=== PATIENT | female | born 1940 | race Caucasian/White ===

== ENCOUNTER → 2016-10-05 | Outpatient (CLI) | payer OTHER ==
--- NOTE | 2016-10-05 11:10 | DX ---
PA and Lateral Chest X-Ray 1004 hours History: Persistent cough for 4 days with development of fever. Findings: Heart size is borderline enlarged. Pulmonary vasculature is normal. There is some atheros clerotic calcification at the aortic arch level. There is peribronchial cuffing seen in the perihilar region and prominence of perihilar interstitial markings. There are no peripheral infiltrates or eff usions. Osseous structures are intact. Impression: Prominence of perihilar interstitial markings and peribronchial cuffing. Findings are non specific but can be seen with bronchitis, reactive airway disease, or viral process.
== END ==
LOC: BMCIMAGING 10:04
PROVIDERS: ATTEND Emergency Medicine
DX: R05 Cough (principal); R50.9 Fever, unspecified; R91.8 Other nonspecific abnormal finding of lung field

== ENCOUNTER → 2016-10-18 | Outpatient (CLI) | payer OTHER ==
--- NOTE | 2016-10-18 09:14 | MA ---
Screening Digital Mammogram Clinical Indications: Routine screening. Daughter with breast cancer at age 56. Technique: Standard cephalocaudal and mediolateral oblique projections are obtained. An additional cc view is performed of the right breast. This examination is processed by the [employer] computer aided d etection system. Comparison: August 2015, August 2014, July 2013 and June 2012 Breast density: B; There are scattered fibroglandular densities. Findings: CAD was reviewed. No suspicious findings are identified. Impression: Negative mammogram. BI-RADS 1. Recommendation: Routine screening is recommended in one year. [facility] will send a result letter to the patient. Negative mammography should not preclude additional workup of a clinically suspicious finding. The patient's information is entered into a reminder system with a target due date for her next mamm ogram.
== END ==
LOC: BMCIMAGING 08:25
DX: Z12.31 Encounter for screening mammogram for malignant neoplasm of breast (principal); Z80.3 Family history of malignant neoplasm of breast
CPT/HCPCS: G0202

== ENCOUNTER → 2016-10-28 | Outpatient (CLI) | payer OTHER | LOC: BMCIMAGING 11:47 | PROVIDERS: ATTEND Internal Medicine | DX: R09.02 Hypoxemia (principal); R91.8 Other nonspecific abnormal finding of lung field ==

== ENCOUNTER → 2016-10-30 | Outpatient (CLI) | payer OTHER | LOC: FIMAGING 13:10 | PROVIDERS: ATTEND Podiatrist Foot & Ankle Surgery | DX: M25.571 Pain in right ankle and joints of right foot (principal); M76.71 Peroneal tendinitis, right leg; M65.9 Synovitis and tenosynovitis, unspecified; S93.491D Sprain of other ligament of right ankle, subsequent encounter; M76.61 Achilles tendinitis, right leg; M72.2 Plantar fascial fibromatosis; M71.571 Other bursitis, not elsewhere classified, right ankle and foot ==

== ENCOUNTER 2016-12-01 11:10 | Emergency (ER) | payer OTHER ==
[2016-12-01] MEDS ORDERED: IPRATROPIUM/ALBUTEROL 3 ML DEYVIAL IH ONE (11:41)
--- NOTE | 2016-12-01 11:46 | EDPHY ---
H & P Stated Complaint: Low O2 at urgent care. recent cough. Time Seen by Provider: 12/01/16 11:34 HPI/ROS: CHIEF COMPLAINT: Cough URI symptoms, low pulse ox HISTORY OF PRESENT ILLNESS: 76-year-old female history of asthma, seen at urgent care [facility] for evaluation of 3 days of productive cough , referred to the emergency department for pulse oxygenation in the low 80s. Denies: Fever, chills, sore throat, chest pain, back pain, syncope or near syncope, abdominal pain PRIMARY CARE PROVIDER: Dr. Bryanna Vergara REVIEW OF SYSTEMS: A ten point review of systems was performed and is negative with the exception of the items mentioned in the HPI PAST MEDICAL & SURGICAL HISTORY: Colonoscopy 4 days ago. Diabetes. Fibromyalgia. Rheumatoid arthritis. Hysterectomy. SOCIAL HISTORY:nonsmoker, never smoked . No alcohol. PHYSICAL EXAM (Prior to examination, patient consented to physical exam, hands were washed and my usual and customary physical exam procedures followed) 1) GENERAL: Well-developed, well-nourished, alert and oriented. Appears nontoxic, smiling, shakes my hand 2) HEAD: Normocephalic, atraumatic 3) HEENT: Pupils equal, round, reactive to light bilaterally. Sclera anicteric. Nasopharynx, oropharynx, clear, no lesions. No tonsillar enlargement or tonsillar exudate. Uvula midline. Ears bilaterally with normal tympanic membranes. 4) NECK: Full range of motion, no meningeal signs. 5) LUNGS: Pulse oxygenation 85% on room air. bilateral end-expiratory wheeze. No retractions or accessory muscle use. 6) HEART: Regular rate and rhythm, no murmur, no heave, no gallop. 7) ABDOMEN: No guarding, no rebound, no focal tenderness, negative McBurney's, negative Gonzalez's, negative Rovsing's, negative peritoneal sign, 8) MUSCULOSKELETAL: Moving all extremities, no focal areas of tenderness, no obvious trauma. No peripheral edema or discoloration. 9) BACK: No CVA tenderness, no midline vertebral tenderness, no fluctuance, no step-off, no obvious trauma, no visual or palpable abnormality. 10) SKIN: No rash, no petechiae. DIFFERENTIAL DIAGNOSIS: In no particular include but limited to bronchitis, pulmonary embolus, pneumonia. - Personal History Current Tetanus Diphtheria and Acellular Pertussis (TDAP): Yes Tetanus Vaccine Date: 2011 - Medical/Surgical History Hx Asthma: Yes Hx Chronic Respiratory Disease: Yes Hx Diabetes: Yes Hx Cardiac Disease: Yes Hx Renal Disease: Yes Hx Cirrhosis: No Hx Alcoholism: No Hx HIV/AIDS: No Hx Splenectomy or Spleen Trauma: No Other PMH: hysterectomy, bladder sx, tonsilectomy, asthma, restless leg, hyperlipedemia, EVA, insomnia, osteoarthritis, fibromyalgia, RA, DM, HTN - Social History Smoking Status: Never smoked Constitutional: Initial Vital Signs Temperature (C) 37.4 C 12/01/16 11:11 Heart Rate 115 H 12/01/16 11:11 Respiratory Rate 20 12/01/16 11:11 Blood Pressure 122/78 H 12/01/16 11:11 O2 Sat (%) 93 12/01/16 11:11 O2 Delivery Mode Room Air O2 (L/minute) 2 Allergies/Adverse Reactions: sulfamethoxazole [From Bactrim] Allergy (Unknown, Verified 05/17/10 15:47) Other-Enter Comments trimethoprim [From Bactrim] Allergy (Unknown, Verified 05/17/10 15:47) Other-Enter Comments erythromycin base [Erythromycin Base] Allergy (Verified 05/14/10 12:19) STOMACH CRAMPS Home Medications: Medication Instructions Recorded Amitriptyline HCl 11/09/13 Aspirin 325 mg (OTC) 11/09/13 Colace 11/09/13 Flexeril 11/09/13 Laxative 11/09/13 Mirapex 11/09/13 Pravachol 11/09/13 Qvar 40 (RX) 11/09/13 Zestril 10 mg (RX) 11/09/13 Albuterol [Proventil Inhaler HFA 1 - 2 puffs IH Q4PRN PRN #1 mdi 12/01/16 (*)] Triazolam 12/01/16 predniSONE [Prednisone] 60 mg PO DAILY #9 tablet 12/01/16 Medical Decision Making - Diagnostics Imaging: Chest, PA and Lateral History: Cough, low O2 sat, sepsis protocol Comparison: October 28, 2016 Findings: Chronic patchy left lower lobe density may represent infiltrate or chronic bronchial disease. I suspect there is diffuse underlying chronic interstitial lung disease. There is no new focal infiltrate or consolidation. Heart size is mildly enlarged. The pulmonary vascularity remains normal.. There is no adenopathy or mass lesion. There is no pleural effusion or pneumothorax. A small dense retrosternal nodule is stable and consistent with a calcified granuloma at is stable since October 2009. A result chronic thoracic kyphosis without compression abnormality. I impression: 1. Difficult to exclude a persistent patchy left lower lobe pneumonia. 2. Possible chronic diffuse interstitial lung disease. 3. If clinically indicated, noncontrast chest CT would be confirmatory of a true pneumonia. Dictated By: Dawit Hernandez MD CT Pulmonary Angiogram History: Shortness of breath, elevated d-dimer. Comparison: PA and lateral chest same day. Technique: Axial contrast-enhanced images were obtained through the chest following the uneventful intravenous administration of 90 mL Isovue-370. Creatinine is 1.2. Multiplanar reformations were performed through the pulmonary arteries. Dose reduction techniques were utilized. Findings: This is a good quality study with visualization of the vessels to the subsegmental level. There is no pulmonary embolus. There is diffuse peribronchial thickening with scattered mucous plugging in the lower lobes and mild basilar atelectasis. There is no focal consolidation. There is a noncalcified 5 mm right lower lobe nodule (series 3 image 132). Right upper lobe granuloma is noted. There is mild cardiomegaly. Coronary artery atherosclerosis is present in the LAD. Mitral valvular and aortic annular calcifications are present. Mild aortic atherosclerosis is present. The aorta is normal caliber without dissection. Scattered mildly prominent mediastinal and hilar lymph nodes are likely reactive. Anterior ankylosis from C4-C7 is noted. A small hiatal hernia is present. Impression: 1. No visible pulmonary embolus. 2. Bronchitis/airways disease with scattered mucous plugging and atelectasis without evidence of pneumonia. 3. Nonspecific mildly prominent lymph nodes, most likely reactive. 4. 5-mm right lower lobe nodule. In a nonsmoker with no cancer history, no further follow up is recommended. In a high-risk patient, Fleischner Society guidelines consider a one-year follow-up CT to be optional. 5. Coronary artery atherosclerosis. Findings discussed with Girish Davies PA-C, 12/01/2016 at 1355 hours. Dictated By: Kwadwo Cooper MD Images reviewed by myself ED Course/Re-evaluation: Patient was re-evaluated with serial examinations throughout her emergency department stay. The case was discussed with Dr. Gold Campos in the ER. She was noted to be hypoxemic and tachycardic. Subsequently a CT angiogram was performed which is negative for pulmonary emboli. At 2:00 p.m. she ambulated to the bathroom without assistance maintaining saturations between 95-100% % on room air with no complaints of dyspnea, no chest pain. At rest she is maintaining saturations of 94-95% on room air, once again without complaints of chest pain or dyspnea. She is feeling improvement after DuoNeb treatment. She has been given oral prednisone as well. At this time I do not think that hospitalization is indicated in the presence of normal saturations. I offered hospitalization she declines this. - Data Points Laboratory Results: Laboratory Results 12/01/16 11:45 12/01/16 11:45 12/01/16 12/01/16 12/01/16 11:50 11:45 11:45 WBC RBC Hgb Hct MCV MCH MCHC RDW Plt Count MPV Neut % (Auto) Lymph % (Auto) [place] % (Auto) Eos % (Auto) Baso % (Auto) Nucleat RBC Rel Count Absolute Neuts (auto) Absolute Lymphs (auto) Absolute Monos (auto) Absolute Eos (auto) Absolute Basos (auto) Absolute Nucleated RBC Immature Gran % Immature Gran # PT 13.5 SEC SEC (12.0-15.0) INR 1.04 (0.83-1.16) APTT 28.1 SEC SEC (23.0-38.0) VBG Lactic Acid Sodium 133 mEq/L L mEq/L (134-144) Potassium 5.2 mEq/L mEq/L (3.5-5.2) Chloride 100 mEq/L mEq/L (97-110) Carbon Dioxide 23 mEq/l mEq/l (22-31) Anion Gap 10 mEq/L mEq/L (8-16) BUN 32 mg/dL H mg/dL (7-23) Creatinine 1.2 mg/dL H mg/dL (0.6-1.0) Estimated GFR 44 Glucose 116 mg/dL H mg/dL (70-100) Calcium 9.3 mg/dL mg/dL (8.5-10.4) Total Bilirubin 0.8 mg/dL mg/dL (0.1-1.4) Influenza Typ A,B (DFA) NEGATIVE FOR FLU (NEGATIVE) 12/01/16 12/01/16 11:45 11:45 WBC 12.30 10^3/uL H 10^3/uL (3.80-9.50) RBC 3.68 10^6/uL L 10^6/uL (4.18-5.33) Hgb 12.6 g/dL g/dL (12.6-16.3) Hct 36.8 % L % (38.0-47.0) MCV 100.0 fL H fL (81.5-99.8) MCH 34.2 pg H pg (27.9-34.1) MCHC 34.2 g/dL g/dL (32.4-36.7) RDW 12.6 % % (11.5-15.2) Plt Count 156 10^3/uL 10^3/uL (150-400) MPV 11.1 fL fL (8.7-11.7) Neut % (Auto) 80.4 % H % (39.3-74.2) Lymph % (Auto) 10.0 % L % (15.0-45.0) [place] % (Auto) 8.0 % % (4.5-13.0) Eos % (Auto) 1.2 % % (0.6-7.6) Baso % (Auto) 0.2 % L % (0.3-1.7) Nucleat RBC Rel Count 0.0 % % (0.0-0.2) Absolute Neuts (auto) 9.88 10^3/uL H 10^3/uL (1.70-6.50) Absolute Lymphs (auto) 1.23 10^3/uL 10^3/uL (1.00-3.00) Absolute Monos (auto) 0.99 10^3/uL H 10^3/uL (0.30-0.80) Absolute Eos (auto) 0.15 10^3/uL 10^3/uL (0.03-0.40) Absolute Basos (auto) 0.03 10^3/uL 10^3/uL (0.02-0.10) Absolute Nucleated RBC 0.00 10^3/uL 10^3/uL (0-0.01) Immature Gran % 0.2 % % (0.0-1.1) Immature Gran # 0.02 10^3/uL 10^3/uL (0.00-0.10) PT INR APTT VBG Lactic Acid 0.9 mmol/L mmol/L (0.7-2.1) Sodium Potassium Chloride Carbon Dioxide Anion Gap BUN Creatinine Estimated GFR Glucose Calcium Total Bilirubin Influenza Typ A,B (DFA) Medications Given: Discontinued Medications Albuterol/Ipratropium (Duoneb) 3 ml IH EDNOW ONE Stop: 12/01/16 11:42 Last Admin: 12/01/16 11:52 Dose: 3 ml Sodium Chloride (Ns) 500 mls @ 0 mls/hr IV ONCE ONE PRN Reason: Wide Open Stop: 12/01/16 13:35 Last Admin: 12/01/16 13:48 Dose: 500 mls Departure - Departure Disposition: Home, Routine, Self-Care Clinical Impression: Exacerbation of asthma Condition: Good Instructions: Asthma (ED) Additional Instructions: Call 911 if you developed chest pain, shortness of breath, dizziness, or any other symptoms that concern you. Referrals: Bryanna Cintron MD [Primary Care Provider] - 1 day without fail Prescriptions: Albuterol [Proventil Inhaler HFA (*)] 1 - 2 puffs IH Q4PRN PRN #1 mdi PRN Reason: Cough, Moderate predniSONE [Prednisone] 60 mg PO DAILY #9 tablet
[2016-12-01 12:00] LABS: % IMMATURE GRANULYOCYTES 0.2 % (0.0-1.1); ABSOLUTE IMMATURE GRANULOCYTES 0.02 10^3/uL (0.00-0.10); ADD DIFF? NO; ADD MORPH? NO; ADD SCAN? NO; ATYPICAL LYMPHOCYTE FLAG 10 (0-99); FRAGMENT RBC FLAG 0 (0-99); HEMATOCRIT 36.8 % (38.0-47.0); HEMOGLOBIN 12.6 g/dL (12.6-16.3); LEFT SHIFT FLG 0 (0-99); LIPEMIA HEMOLYSIS FLAG 90 (0-99); MEAN CELL HEMOGLOBIN 34.2 pg (27.9-34.1); MEAN CELL HEMOGLOBIN CONCENTR. 34.2 g/dL (32.4-36.7); MEAN PLATELET VOLUME 11.1 fL (8.7-11.7); PLATELET CLUMPS FLAG 0 (0-99); PLATELET COUNT 156 10^3/uL (150-400); RED BLOOD CELL COUNT 3.68 10^6/uL (4.18-5.33); RED CELL DISTRIBUTION WIDTH 12.6 % (11.5-15.2)
[2016-12-01 12:11] LABS: ANION GAP 10 mEq/L (8-16); BILIRUBIN,TOTAL 0.8 mg/dL (0.1-1.4); CALCIUM 9.3 mg/dL (8.5-10.4); CARBON DIOXIDE 23 mEq/l (22-31); CHLORIDE 100 mEq/L (97-110); CREATININE 1.2 mg/dL (0.6-1.0); GLOMERULAR FILTRATION RATE 44; GLUCOSE 116 mg/dL (70-100); POTASSIUM 5.2 mEq/L (3.5-5.2); SODIUM 133 mEq/L (134-144)
[2016-12-01 12:20] LABS: APTT 28.1 SEC (23.0-38.0); INR 1.04 (0.83-1.16); PROTIME(PATIENT) 13.5 SEC (12.0-15.0)
[2016-12-01] MEDS ORDERED: IOPAMIDOL (ISOVUE 370) 100 ML BTL IV ONE (12:57)
[2016-12-01] MEDS ORDERED: NS 500 ML IV ONE (13:34)
[2016-12-01] MEDS ORDERED: predniSONE 20 MG TAB PO ONE (14:13)
[2016-12-01 15:08] VITALS: BP 124/76; PULSE 99; RESP 16; TEMP 98.4; O2SAT 90
== END 2016-12-01 15:00 | disposition home or self-care (01) ==
DX: J45.901 Unspecified asthma with (acute) exacerbation (principal); E11.9 Type 2 diabetes mellitus without complications; I10 Essential (primary) hypertension; Z79.82 Long term (current) use of aspirin
CPT/HCPCS: 71020; 71275; 96360; 99285; Q9967

== ENCOUNTER 2016-12-03 11:02 | Emergency (ER) | payer OTHER ==
--- NOTE | 2016-12-03 11:08 | EDPHY ---
HPI/HX/ROS/PE/MDM Narrative: CHIEF COMPLAINT: Fall, facial injuries HPI: This patient is a 76 year old woman presenting after mechanical fall, 15 minutes ago. She was carrying groceries and accidentally tripped up the stairs. There was no loss of consciousness. She sustained abrasions to the left side of her face and landed on her left knee. She was ambulatory after the fall and was able to walk to the car. She denies neck or back pain. REVIEW OF SYSTEMS: Aside from elements discussed in the HPI, a comprehensive 10-point review of systems was reviewed and is negative. PMH: Diabetes, fibromyalgia, RA, hysterectomy SOCIAL HISTORY: Granddaughter at bedside. Denies drug abuse. PHYSICAL EXAM: General:Patient is alert, in no acute distress. ENT:Eyes are normal to inspection. ENT inspection normal. Neck: Normal inspection. Full range of motion. Respiratory:No respiratory distress. Breath sounds normal bilaterally. Cardiovascular: Regular rate and rhythm. Strong peripheral pulses. Normal cap refill. Abdomen:The abdomen is nontender to palpation. There are no peritoneal signs. There are normal bowel sounds. Back: Normal to inspection. No tenderness to palpation. Skin: 1cm curve-linear laceration to the left forehead. Abrasion to the left eyebrow and bridge of nose. Ecchymosis to the left knee. Normal color. No rash. Warm and dry. Extremities: Normal appearance. Full range of motion. Left knee is non-tender, full range of motion without pain. Neuro: Oriented x3. Normal motor function. Normal sensory function. ED Course: IMAGING Study: CT of the Head w/o IV contrast Indication: Trauma Results: The results of the study are normal, no acute findings. The study was read by the radiologist, Dr. Richmond. I viewed the images myself on the PACS system. Procedure: Laceration repair. The 1cm laceration on the left forehead was repaired with dermabond. The wound repair was simple. MDM: This patient presents with mechanical fall causing injury to her forehead. Her CTH is negative. I see no signs of other trauma. The patient would like to go home. We discussed strict return precautions. She is not on anticoagulants. General Time Seen by Provider: 12/03/16 11:07 Initial Vital Signs: Initial Vital Signs Temperature (C) 36.4 C 12/03/16 11:14 Heart Rate 108 H 12/03/16 11:14 Respiratory Rate 22 H 12/03/16 11:14 Blood Pressure 122/74 H 12/03/16 11:14 O2 Sat (%) 92 12/03/16 11:14 O2 Delivery Mode Room Air Allergies/Adverse Reactions: sulfamethoxazole [From Bactrim] Allergy (Unknown, Verified 12/03/16 11:10) Other-Enter Comments trimethoprim [From Bactrim] Allergy (Unknown, Verified 12/03/16 11:10) Other-Enter Comments erythromycin base [Erythromycin Base] Allergy (Verified 12/03/16 11:10) STOMACH CRAMPS Home Medications: Medication Instructions Recorded Amitriptyline HCl 11/09/13 Aspirin 325 mg (OTC) 11/09/13 Colace 11/09/13 Flexeril 11/09/13 Laxative 11/09/13 Mirapex 11/09/13 Pravachol 11/09/13 Qvar 40 (RX) 11/09/13 Zestril 10 mg (RX) 11/09/13 Albuterol [Proventil Inhaler HFA 1 - 2 puffs IH Q4PRN PRN #1 mdi 12/01/16 (*)] Triazolam 12/01/16 predniSONE [Prednisone] 60 mg PO DAILY #9 tablet 12/01/16 Departure - Departure Disposition: Home, Routine, Self-Care Clinical Impression: Fall from slip, trip, or stumble Qualifiers: Encounter type: initial encounter Qualified Code(s): W01.0XXA - Fall on same level from slipping, tripping and stumbling without subsequent striking against object, initial encounter Facial abrasion Qualifiers: Encounter type: initial encounter Qualified Code(s): S00.81XA - Abrasion of other part of head, initial encounter Laceration of forehead without complication Qualifiers: Encounter type: initial encounter Qualified Code(s): S01.81XA - Laceration without foreign body of other part of head, initial encounter Condition: Good Instructions: Fall Prevention for Older Adults (ED), Abrasion (ED), Facial Laceration (ED) Additional Instructions: Return to the Emergency Department for fever, redness, discharge from wound, increasing pain or other worsening of condition. Referrals: Bryanna Cintron MD [Primary Care Provider] - As per Instructions Report Scribed for: Dawit Beckman Report Scribed by: Joaquina Goss Date of Report: 12/03/16 Time of Report: 11:08 Physician Review and Approval Statement: Portions of this note were transcribed by an ED scribe. I personally performed the history, physical exam, and medical decision making; and confirm the accuracy of the information in the transcribed note.
[2016-12-03] MEDS ORDERED: SKIN ADHESIVE (DERMABOND) 1 EACH TP ONE (12:01)
[2016-12-03 12:41] VITALS: BP 123/66; PULSE 77; RESP 15; TEMP 97.7; O2SAT 91
== END 2016-12-03 12:41 | disposition home or self-care (01) ==
PROC: 0HQ1XZZ Repair Face Skin, External Approach (ICD-10-PCS; principal; 2016-12-03)
DX: S01.81XA Laceration without foreign body of other part of head, initial encounter (principal); E11.9 Type 2 diabetes mellitus without complications; Z79.82 Long term (current) use of aspirin; W01.0XXA Fall on same level from slipping, tripping and stumbling without subsequent striking against object, initial encounter; Y93.89 Activity, other specified

== ENCOUNTER → 2016-12-12 | Outpatient (CLI) | payer OTHER | LOC: BMCIMAGING 14:43 | PROVIDERS: ATTEND Internal Medicine | DX: J18.9 Pneumonia, unspecified organism (principal); N28.9 Disorder of kidney and ureter, unspecified ==

== ENCOUNTER → 2016-12-30 | Outpatient (CLI) | payer OTHER | LOC: BMCIMAGING 08:44 | PROVIDERS: ATTEND Internal Medicine | DX: J18.1 Lobar pneumonia, unspecified organism (principal) ==

== ENCOUNTER 2017-01-06 18:51 | Inpatient (IN) | payer OTHER ==
--- NOTE | 2017-01-06 19:17 | EDPHY ---
HPI/HX/ROS/PE/MDM Narrative: CHIEF COMPLAINT: Fever, ongoing cough. HISTORY OF PRESENT ILLNESS: The patient is a 76-year-old female presenting with fever and ongoing cough. The patient was started on 3 days of Levaquin in October for bronchitis. Her symptoms did not improve. She went back to her physician and was started on Cipro and still did not improve. She took another antibiotic which she is unable to recall, and lastly took Azithromycin. The patient continues to have fever and cough. Fever today reached 102. Her cough is productive with yellow/greens sputum. Patient had diarrhea last night. She has felt fatigued and unwell all day. She denies chest pain or shortness of breath. No urinary complaints. Patient wears oxygen at night. The patient did not receive an influenza vaccination. REVIEW OF SYSTEMS: Aside from elements discussed in the HPI, a comprehensive 10-point review of systems was reviewed and is negative. PAST MEDICAL HISTORY: Asthma, Fibromyalgia, Osteoarthritis, Hypertension SOCIAL HISTORY: . Nonsmoker. No alcohol. Granddaughter at bedside. VITAL SIGNS: Reviewed by me GENERAL: Well-developed, well-nourished, resting comfortably in no respiratory distress. HEENT: Atraumatic. Eyes: No icterus, no injection. Mouth: moist mucous membranes. No erythema or lesions. Neck: supple with no adenopathy. LUNGS: Clear to auscultation bilaterally, faint wheezes, good air movement. CARDIAC: Regular rate and rhythm, no rubs, murmurs or gallops. ABDOMEN: Obese, nontender. BACK: No CVA tenderness. EXTREMITIES: No trauma. No edema. Range of motion is normal throughout. NEURO: Alert and oriented, grossly nonfocal. SKIN: Warm and dry, no rash. PSYCHIATRIC: Normal mentation, no agitation. Portions of this note were transcribed by a medical billing and coding instructor. I personally performed a history, physical exam, medical decision making, and confirmed accuracy of information the transcribed note. ED Course: The patient presents with fever and cough. The patient underwent multiple rounds of antibiotics for pneumonia. She continues to have a productive cough and fever today of 102. I reviewed her past medical records. She had a CT in November that was negative for pneumonia. Chest x-ray from 12/12 which showed right lower lobe pneumonia and x-ray from 12/30 showed decreasing right lower lobe pneumonia. Initial vitals show patient is febrile and hypoxic. Sepsis screen identified. Plan for lab workup, lactic acid, and urinalysis. Chest x- ray is pending. Patient received 1000mg Tylenol PO for fever as well as albuterol breathing treatment for cough. The patient presents to the ED with pneumonia identified as an acute infection. The patient did have not evidence of end organ dysfunction and did not met criteria for severe sepsis. I viewed the X-ray of the chest myself on the PACS system. X-ray shows persistent right lower lobe infiltrate. Please see the full radiology report in the imaging section. The patient presents to the ED with pneumonia identified as an acute infection. The patient did not meet criteria for severe sepsis. 76-year-old female presenting with persistent fever, cough, and infiltrate on chest x-ray. Patient is tachycardic to 104 as well as hypoxic at 88% on presentation. Chest x-ray demonstrates persistent right lower lobe infiltrate. 8:35 p.m.: I spoke to the hospitalist, the patient will be admitted to Dr. Prater. MDM: Differential diagnosis for the patient's cough was considered including but not limited to viral versus bacterial bronchitis, asthma, COPD, pulmonary emboli, upper respiratory infection, lower respiratory infection, and bronchospasm. - Data Points Imaging Results: Imaging Impressions Chest X-Ray 01/06/17 19:23 Impression: Bilateral pneumonia appears slightly improved from December 30, 2016. Laboratory Results: Laboratory Results 01/06/17 19:30 01/06/17 19:30 01/06/17 01/06/17 01/06/17 19:30 19:30 19:30 WBC 13.75 10^3/uL H 10^3/uL (3.80-9.50) RBC 3.97 10^6/uL L 10^6/uL (4.18-5.33) Hgb 13.3 g/dL g/dL (12.6-16.3) Hct 39.6 % % (38.0-47.0) MCV 99.7 fL fL (81.5-99.8) MCH 33.5 pg pg (27.9-34.1) MCHC 33.6 g/dL g/dL (32.4-36.7) RDW 13.9 % % (11.5-15.2) Plt Count 190 10^3/uL 10^3/uL (150-400) MPV 10.3 fL fL (8.7-11.7) Neut % (Auto) 75.1 % H % (39.3-74.2) Lymph % (Auto) 16.7 % % (15.0-45.0) Haines % (Auto) 6.8 % % (4.5-13.0) Eos % (Auto) 0.7 % % (0.6-7.6) Baso % (Auto) 0.3 % % (0.3-1.7) Nucleat RBC Rel Count 0.0 % % (0.0-0.2) Absolute Neuts (auto) 10.31 10^3/uL H 10^3/uL (1.70-6.50) Absolute Lymphs (auto) 2.30 10^3/uL 10^3/uL (1.00-3.00) Absolute Monos (auto) 0.94 10^3/uL H 10^3/uL (0.30-0.80) Absolute Eos (auto) 0.10 10^3/uL 10^3/uL (0.03-0.40) Absolute Basos (auto) 0.04 10^3/uL 10^3/uL (0.02-0.10) Absolute Nucleated RBC 0.00 10^3/uL 10^3/uL (0-0.01) Immature Gran % 0.4 % % (0.0-1.1) Immature Gran # 0.06 10^3/uL 10^3/uL (0.00-0.10) PT 13.2 SEC SEC (12.0-15.0) INR 1.01 (0.83-1.16) APTT 26.4 SEC SEC (23.0-38.0) VBG Lactic Acid Sodium 138 mEq/L mEq/L (134-144) Potassium 3.9 mEq/L mEq/L (3.5-5.2) Chloride 106 mEq/L mEq/L (97-110) Carbon Dioxide 23 mEq/l mEq/l (22-31) Anion Gap 9 mEq/L mEq/L (8-16) BUN 26 mg/dL H mg/dL (7-23) Creatinine 1.1 mg/dL H mg/dL (0.6-1.0) Estimated GFR 48 Glucose 126 mg/dL H mg/dL (70-100) Calcium 9.5 mg/dL mg/dL (8.5-10.4) Total Bilirubin 0.7 mg/dL mg/dL (0.1-1.4) 01/06/17 19:30 WBC RBC Hgb Hct MCV MCH MCHC RDW Plt Count MPV Neut % (Auto) Lymph % (Auto) Haines % (Auto) Eos % (Auto) Baso % (Auto) Nucleat RBC Rel Count Absolute Neuts (auto) Absolute Lymphs (auto) Absolute Monos (auto) Absolute Eos (auto) Absolute Basos (auto) Absolute Nucleated RBC Immature Gran % Immature Gran # PT INR APTT VBG Lactic Acid 0.8 mmol/L mmol/L (0.7-2.1) Sodium Potassium Chloride Carbon Dioxide Anion Gap BUN Creatinine Estimated GFR Glucose Calcium Total Bilirubin Medications Given: Discontinued Medications Acetaminophen (Tylenol) 1,000 mg PO EDNOW ONE Stop: 01/06/17 19:25 Last Admin: 01/06/17 19:30 Dose: 1,000 mg Albuterol (Proventil Neb) 3 ml IH EDNOW ONE Stop: 01/06/17 19:25 Last Admin: 01/06/17 20:05 Dose: 3 ml Albuterol/Ipratropium (Duoneb) 3 ml IH EDNOW ONE Stop: 01/06/17 19:25 Last Admin: 01/06/17 19:40 Dose: 3 ml Sodium Chloride (Ns) 1,000 mls @ 0 mls/hr IV ONCE ONE PRN Reason: Wide Open Stop: 01/06/17 19:24 Last Admin: 01/06/17 19:40 Dose: 1,000 mls Ceftriaxone Sodium/Dextrose (Rocephin 1 Gm (Premix)) 50 mls @ 100 mls/hr IV EDNOW ONE PRN Reason: Protocol Stop: 01/06/17 20:43 Last Admin: 01/06/17 20:45 Dose: 50 mls General Time Seen by Provider: 01/06/17 19:10 Initial Vital Signs: Initial Vital Signs Temperature (C) 37.2 C 01/06/17 18:58 Heart Rate 104 H 01/06/17 18:58 Respiratory Rate 17 01/06/17 18:58 Blood Pressure 149/90 H 01/06/17 18:58 O2 Sat (%) 88 L 01/06/17 18:58 O2 Delivery Mode Nasal Cannula O2 (L/minute) 2 Allergies/Adverse Reactions: sulfamethoxazole [From Bactrim] Allergy (Unknown, Verified 01/06/17 18:57) Other-Enter Comments trimethoprim [From Bactrim] Allergy (Unknown, Verified 01/06/17 18:57) Other-Enter Comments erythromycin base [Erythromycin Base] Allergy (Verified 01/06/17 18:57) STOMACH CRAMPS Home Medications: Medication Instructions Recorded Acetaminophen/Codeine 300/30Mg 1 each PO Q6 PRN 01/06/17 [Tylenol #3 (*)] Albuterol [Proventil Inhaler HFA 1 puffs IH TID PRN 01/06/17 (*)] Amitriptyline HCl [Elavil 50 mg 100 mg PO HS 01/06/17 (*)] Aspirin [Aspirin 325 mg (*)] 325 mg PO DAILY 01/06/17 Beclomethasone Qvar 40 [Qvar 40 1 puffs IH BID 01/06/17 (*)] Cholecalciferol Vit D3 [Vitamin D3 2,000 units PO DAILY 01/06/17 (*)] Cyanocobalamin [Vitamin B12 (*)] 2,000 mcg PO DAILY 01/06/17 Cyclobenzaprine [Flexeril 10 MG 10 mg PO HS PRN 01/06/17 (*)] Docusate Sodium [Colace 100 MG (*)] 100 mg PO HS PRN 01/06/17 Lisinopril [Zestril 10 mg (*)] 10 mg PO DAILY 01/06/17 [place]-3 Fatty Acids/Fish Oil 4 each PO DAILY 01/06/17 [[place] 3 Fish Oil Softgel] Polyethylene Glycol 3350 [Miralax 17 gm PO HS 01/06/17 17 gm (*)] Pramipexole Di-HCl [Mirapex 0.25 0.25 mg PO HS 01/06/17 mg (*)] Pravastatin Sodium [Pravachol] 40 mg PO HS 01/06/17 Temazepam [Restoril] 30 mg PO HS 01/06/17 metFORMIN HCL [Metformin HCl] 500 mg PO BID 01/06/17 Acetaminophen [Tylenol 325mg (*)] 650 mg PO Q4HRS PRN #0 tab 01/08/17 Phenazopyridine HCl [Pyridium] 200 mg PO TID PRN #0 tab 01/08/17 levOFLOXACIN [levAQUIN (*)] 750 mg PO DAILY #5 tab 01/08/17 Departure - Departure Disposition: [facility] Inpatient Acute Clinical Impression: Hypoxemia Pneumonia Qualifiers: Pneumonia type: due to unspecified organism Laterality: right Lung location: lower lobe of lung Qualified Code(s): J18.1 - Lobar pneumonia, unspecified organism Condition: Fair Report Scribed for: Dionne Fierro Report Scribed by: Minda Smith Date of Report: 01/06/17 Time of Report: 19:26
[2017-01-06] MEDS ORDERED: NS 1,000 ML IV ONE (19:23)
[2017-01-06] MEDS ORDERED: ALBUTEROL 3 ML DEYVIAL IH ONE (19:24)
[2017-01-06] MEDS ORDERED: IPRATROPIUM/ALBUTEROL 3 ML DEYVIAL IH ONE (19:24)
[2017-01-06] MEDS ORDERED: ACETAMINOPHEN 500 MG TAB PO ONE (19:24)
[2017-01-06 19:40] LABS: % IMMATURE GRANULYOCYTES 0.4 % (0.0-1.1); ABSOLUTE IMMATURE GRANULOCYTES 0.06 10^3/uL (0.00-0.10); ADD DIFF? NO; ADD MORPH? NO; ADD SCAN? NO; ATYPICAL LYMPHOCYTE FLAG 0 (0-99); FRAGMENT RBC FLAG 0 (0-99); HEMATOCRIT 39.6 % (38.0-47.0); HEMOGLOBIN 13.3 g/dL (12.6-16.3); LEFT SHIFT FLG 0 (0-99); LIPEMIA HEMOLYSIS FLAG 80 (0-99); MEAN CELL HEMOGLOBIN 33.5 pg (27.9-34.1); MEAN CELL HEMOGLOBIN CONCENTR. 33.6 g/dL (32.4-36.7); MEAN CELL VOLUME 99.7 fL (81.5-99.8); MEAN PLATELET VOLUME 10.3 fL (8.7-11.7); PLATELET CLUMPS FLAG 0 (0-99); PLATELET COUNT 190 10^3/uL (150-400); RED BLOOD CELL COUNT 3.97 10^6/uL (4.18-5.33); RED CELL DISTRIBUTION WIDTH 13.9 % (11.5-15.2)
[2017-01-06 19:49] LABS: APTT 26.4 SEC (23.0-38.0); INR 1.01 (0.83-1.16); PROTIME(PATIENT) 13.2 SEC (12.0-15.0)
[2017-01-06 20:04] LABS: ANION GAP 9 mEq/L (8-16); BILIRUBIN,TOTAL 0.7 mg/dL (0.1-1.4); CALCIUM 9.5 mg/dL (8.5-10.4); CARBON DIOXIDE 23 mEq/l (22-31); CHLORIDE 106 mEq/L (97-110); CREATININE 1.1 mg/dL (0.6-1.0); GLOMERULAR FILTRATION RATE 48; GLUCOSE 126 mg/dL (70-100); POTASSIUM 3.9 mEq/L (3.5-5.2); SODIUM 138 mEq/L (134-144)
[2017-01-06] MEDS ORDERED: oxyCODONE IR 5 MG TAB PO PRN (21:17)
[2017-01-06] MEDS ORDERED: ONDANSETRON 4 MG/2 ML VIAL IVP PRN (21:17)
[2017-01-06] MEDS ORDERED: POLYETHYLENE GLYCOL 3350 17 GM PKT PO PRN (21:17)
[2017-01-06] MEDS ORDERED: ONDANSETRON DISINTEGRATING 4 MG TAB PO PRN (21:17)
[2017-01-06] MEDS ORDERED: BISACODYL 10 MG SUPP PR PRN (21:17)
[2017-01-06] MEDS ORDERED: MAGNESIUM HYDROXIDE 30 ML UDCUP PO PRN (21:17)
[2017-01-06] MEDS ORDERED: ACETAMINOPHEN 325 MG TAB PO PRN (21:17)
[2017-01-06] MEDS ORDERED: ALBUTEROL 3 ML DEYVIAL IH PRN (21:17)
[2017-01-06] MEDS ORDERED: LACTULOSE 20 GM/30 ML UDCUP PO PRN (21:17)
[2017-01-06] MEDS ORDERED: NS 500 ML IV ONE (21:20)
[2017-01-06] MEDS ORDERED: CYCLOBENZAPRINE 10 MG TAB PO PRN (21:51)
[2017-01-06] MEDS ORDERED: DOCUSATE SODIUM 100 MG CAP PO PRN (21:51)
[2017-01-06] MEDS ORDERED: D50W 25 GM/50 ML SYR IVP PRN (22:08)
--- NOTE | 2017-01-06 23:10 | GHP ---
[f rep st] HISTORY AND PHYSICAL DATE OF ADMISSION: 01/06/2017 CHIEF COMPLAINT: Cough, shortness of breath, and fatigue. HISTORY: This is a 76-year-old female with past medical history that includes reactive airways dise ase, EVA and morbid obesity who presents with several months of cough, shortness of breath and gener alized fatigue. The patient notes that she has been seen and treated on 3 separate occasions for pr esumed right lower lobe pneumonia. She has undergone a course of Levaquin, Augmentin and most recen tly a Z-Pradip. She notes that despite these treatments she continues to have ongoing cough and fatigu e as well as intermittent fever and increased sputum production. She notes that she has a hard time coughing things out but that when she does get anything up it is dark green and very thick. She st ates that she has not really had any reprieve from these symptoms since they started in October. O maggie the last several days they do seem to be getting much worse. She denies any chest pain. She de nies any increased swelling of her legs, though she does have some chronic lower extremity edema for which she takes Lasix. She has had some sick contacts including her granddaughter who just got ove r an upper respiratory infection, but nobody has been as sick as she has been. She has never had si milar issues in the past. PAST MEDICAL HISTORY: Includes. 1. Reactive airways disease. 2. Obstructive sleep apnea. 3. Hypertension. 4. Morbid obesity. 5. Fibromyalgia. 6. Restless legs syndrome. 7. Hyperlipidemia. 8. Diabetes. PAST SURGICAL HISTORY: Includes. 1. Appendectomy. 2. Tonsillectomy. 3. Adnexal mass resection with bilateral salpingo-oophorectomy and hysterectomy. 4. Bladder suspension surgery. 5. Bilateral knee arthroscopies. FAMILY HISTORY: Mother had colon cancer and Alzheimer's at the time of . Father with prostate cancer, colon cancer and leukemia and at 97. SOCIAL HISTORY: Patient lives independently. She is a never smoker. She does not drink or use minnie gs. She has a granddaughter who is very involved in her care. REVIEW OF SYSTEMS: 10-point review of systems obtained. Negative except as per HPI. MEDICATIONS: Include: 1. [place]-3 fatty acids. 2. Cyanocobalamin. 3. Vitamin D. 4. Restoril. 5. Tylenol #3. 6. Metformin. 7. Lisinopril. 8. Pravastatin. 9. Mirapex. 10. Beclomethasone Qvar. 11. Flexeril. 12. Aspirin. 13. Amitriptyline. 14. Albuterol. ALLERGIES: Include sulfa and erythromycin. PHYSICAL EXAM: VITAL SIGNS: BP 122/71, heart rate 91, respiratory rate 18, O2 SATs 99% on 2 L. Sh e was 88% on room air. Temperature is 36.7. GENERAL APPEARANCE: This is an obese female . She is awake and alert. She is in no acute distress. EYES: Anicteric. HENT: Oropharynx clear , moist mucous membranes. CARDIOVASCULAR: RRR, no MRG, there is trace bilateral lower extremity ed yokasta. PULMONARY: Right basilar crackles. Otherwise normal work of breathing. ABDOMEN: Obese soft , nontender. Positive bowel sounds. SKIN: Warm dry well perfused. NEURO/PSYCH: Oriented and filipe ropriate, pleasant. CLINICAL DATA: Labs reviewed and significant for white blood cell count of 13.75, hematocrit of 39. 6, platelets of 190. Coags are within normal limits. Lactic acid is 0.8. Chemistry is notable for a creatinine of 1.1, glucose of 126. Chest x-ray personally reviewed and interpreted shows bilateral pneumonia somewhat worse on the righ t which appears similar to last chest x-ray on December 30. ASSESSMENT/PLAN: This is a 76-year-old female, past medical history of reactive airways disease, OS A and obesity, presenting with persistent versus recurrent bilateral pneumonia. 1. Pneumonia. This is either persistent or recurrent despite 3 rounds of antibiotics as an outpati ent. She has been started on ceftriaxone and will add Levaquin as well. She will be admitted and m onitored for improvement given failure to respond to usual outpatient therapy. She does not appear septic and is otherwise hemodynamically stable. Cultures have been sent and are pending. She has n o risk factors for nosocomial organisms. 2. Acute hypoxic respiratory failure in the setting of above and responding well to low-flow oxygen . Did not have suspicion for secondary process really at this time, but could consider further eval uation if she does not respond to typical therapies, especially given the long-lasting nature of her symptoms. 3. Obstructive sleep apnea for which she has previously not been compliant with CPAP. She does hav e some mild lower extremity edema, likely related to same. Will obtain an echocardiogram to evaluat e for component of pulmonary hypertension. 4. Morbid obesity. Suspect a component of obesity/hypoventilation syndrome contributing. Again, e chocardiogram is pending. Otherwise recommend lifestyle modification. 5. Reactive airways disease without significant evidence of acute exacerbation. Will schedule bron chodilators. Will hold off on steroids given that she does not have any significant wheeze. 6. Diabetes. Will hold her metformin and monitor with sliding scale. 7. Chronic kidney disease. Baseline creatinine seems to be at approximately 1.2, and she is essent ially at baseline currently. 8. Chronic medical problems including hypertension, restless legs syndrome, hyperlipidemia, fibromy algia. Will continue her outpatient regimen. DISPOSITION: Inpatient status. I suspect she will need greater than 48 hours stay for evaluation a nd management of above. Patient is new to my care. Old records reviewed and summarized as per HPI and past medical history. Care plan reviewed with ER doctor including plans for admission. Further history obtained from gorge salonililiana's granddaughter present at bedside. /[id number]/MODL
[2017-01-06] MEDS: TEMAZEPAM 15 MG CAP PO SCH (23:11)
[2017-01-07 00:17] LABS: COLOR YELLOW; LEUKOCYTE ESTERASE,URINE 2+ (NEGATIVE); NITRITE,URINE NEGATIVE (NEGATIVE)
[2017-01-07 00:36] LABS: MUCUS TRACE /lpf (NONE-1+); WBC,URINE 50-182 /hpf (0-3)
[2017-01-07] MEDS: ACETYLCYSTEINE 10% 30 ML VIAL IH SCH ×5 (02:15→20:46)
[2017-01-07] MEDS: ACETAMINOPHEN/CODEINE 300/30MG TAB PO PRN ×3 (03:04→21:13)
[2017-01-07] MEDS: PHENAZOPYRIDINE HCL 100 MG TAB PO PRN ×3 (03:05→20:06)
[2017-01-07 04:57] LABS: % IMMATURE GRANULYOCYTES 0.4 % (0.0-1.1); ABSOLUTE IMMATURE GRANULOCYTES 0.04 10^3/uL (0.00-0.10); ADD DIFF? NO; ADD MORPH? NO; ADD SCAN? NO; ATYPICAL LYMPHOCYTE FLAG 0 (0-99); FRAGMENT RBC FLAG 0 (0-99); HEMATOCRIT 35.7 % (38.0-47.0); HEMOGLOBIN 11.6 g/dL (12.6-16.3); LEFT SHIFT FLG 0 (0-99); LIPEMIA HEMOLYSIS FLAG 80 (0-99); MEAN CELL HEMOGLOBIN 33.1 pg (27.9-34.1); MEAN CELL HEMOGLOBIN CONCENTR. 32.5 g/dL (32.4-36.7); MEAN PLATELET VOLUME 10.9 fL (8.7-11.7); PLATELET CLUMPS FLAG 0 (0-99); PLATELET COUNT 159 10^3/uL (150-400)
[2017-01-07 05:08] LABS: ANION GAP 7 mEq/L (8-16); CARBON DIOXIDE 24 mEq/l (22-31); CHLORIDE 108 mEq/L (97-110); CREATININE 0.9 mg/dL (0.6-1.0); GLOMERULAR FILTRATION RATE > 60; GLUCOSE 124 mg/dL (70-100); POTASSIUM 3.8 mEq/L (3.5-5.2); SODIUM 139 mEq/L (134-144)
[2017-01-07] MEDS: IPRATROPIUM/ALBUTEROL 3 ML DEYVIAL IH SCH ×4 (06:22→20:46)
[2017-01-07] MEDS: INSULIN LISPRO 100 UNIT/ML SC SCH ×3 (07:47→17:40)
[2017-01-07] MEDS: LISINOPRIL 10 MG TAB PO SCH (08:23)
[2017-01-07] MEDS: ENOXAPARIN 40 MG/0.4 ML SYR SC SCH (08:23)
[2017-01-07] MEDS: CHOLECALCIFEROL VIT D3 1,000 UNITS TAB PO SCH (08:23)
[2017-01-07] MEDS: SENNOSIDES/DOCUSATE SODIUM TAB PO SCH ×2 (08:23→20:06)
[2017-01-07] MEDS: CYANO/VITAMIN B12 1000 MCG TAB PO SCH (08:23)
[2017-01-07] MEDS: OMEGA-3 FATTY ACIDS 1,000 MG CAP PO SCH (08:24)
[2017-01-07] MEDS: ASPIRIN 325 MG TAB PO SCH (08:24)
[2017-01-07] MEDS ORDERED: cefTRIAXone 1 GM in D5W 50 ML IV SCH (09:00)
[2017-01-07] MEDS: BECLOMETHASONE QVAR 40 MDI IH SCH ×2 (10:09→20:53)
--- NOTE | 2017-01-07 12:38 | HOSPPROG ---
Hospitalist Progress Note Assessment/Plan: Patient is a 76y/o female who presented to the ER with cough, shortness of breath and fatigue. Today is my first encounter with the patient/ chart reviewed. *Pneumonia bilateral lobe on Ceftriaxone and Levaquin blood cx pending afebrile *acute hypoxemic respiratory failure on room air CTA in November 2016/no PE *EVA patient shared w RN she thought she had an echo 2 weeks ago will f/u (evaluate for Pulmonary hypertension) awaiting for reports from this echo, if not done, will have one done here *UTI has increase frequency and urgency also, drinking lots of water *reactive airway disease *Morbid Obesity possibly impacting the above could have underlying hypoventilation syndrome *Diabetes metformin on hold/ sliding scale *hx of PMR patient felt well while on oral steroids/ not on this *CKD stable *HTN bp slightly elevated *HLD *DVT prophylaxis: LMWH Subjective: adali is feeling better today/ concerned she has some ankle swelling Objective: Vital Signs Temp Pulse Resp BP Pulse Ox 36.7 C 89 16 157/86 H 93 01/07/17 11:23 01/07/17 11:23 01/07/17 11:23 01/07/17 11:23 01/07/17 11:23 Laboratory Results 01/07/17 04:23 01/07/17 04:23 01/06/17 01/07/17 01/08/17 05:59 05:59 05:59 Intake Total 2075 1600 Output Total 700 1150 Balance 1375 450 PT 13.2 SEC (12.0-15.0) 01/06/17 19:30 INR 1.01 (0.83-1.16) 01/06/17 19:30 - Physical Exam Constitutional: no apparent distress, appears nourished, not in pain Eyes: PERRL Ears, Nose, Mouth, Throat: hearing normal Cardiovascular: regular rate and rhythym, edema (trace) Respiratory: no respiratory distress, clear to auscultation Skin: warm Musculoskeletal: no muscle tenderness Neurologic: AAOx3 Psychiatric: interacting appropriately, not anxious ICD10 Worksheet Patient Problems: Problems Problem Status Onset Hypoxemia Acute Pneumonia Acute
[2017-01-07] MEDS: CLINDAMYCIN 1% TP PRN (15:58)
--- NOTE | 2017-01-07 16:43 | ECHO ---
[id number] + + [address] : : [place] [address] : : [phone] + + Adult Echocardiographic Report + --+ :Name: JEANNA CARPENTER JStudy Date: 01/07/2017 03:01 PM : : Hospital Admission Number: [id number] : :: 1940 Gender: Female Height: 63 in : :Age: 76 yrs Race: WH Weight: 180 lb : :Reason For Study: Eval LV Fx : : BSA: 1.8 meter s2: :History: Hypoxia, Pneumonia : + --+ MMode/2D Measurements \T\ Calculations IVSd: 1.0 cm LVIDd: 4.1 cm FS: 34.5 % Ao root diam: 2.9 cm LVPWd: 1.0 cm LVIDs: 2.7 cm EDV(Teich): 76.1 ml ACS: 1.7 cm ESV(Teich): 27.3 ml EF(Teich): 64.1 % Normal Measurement Values: + + :LVIDd (3.5-5.7cm) IVSd (0.6-1.1cm) LVPWd (0.6-1.1cm) Aortic Root (2.0-3.7cm)Left Atrium (1.5-4.0cm): :LV Vol(d) (76-115ml) LV Vol(s) (29-48ml) Ejec Fraction (50-65%)PV Jayden (0.6- 1.2m/s) TV Jayden (0.4-1.0m/s) : :MV E Jayden (0.8-1.0m/s)MV A Jayden (0.3-1.0m/s)LVOT Jayden (0.7-1.2m/s) Asc Ao Jayden ( 0.9-1.8m/s) : + + Doppler Measurements \T\ Calculations MV E max jayden: MV V2 mean: MV P1/2t max jayden: Ao V2 max: 103.7 cm/sec 96.1 cm/sec 127.6 cm/sec 171.0 cm/sec MV A max jayden: MV mean PG: MV P1/2t: 53.3 msec Ao max P.4 cm/sec 4.2 mmHg MVA(P1/2t): 4.1 cm2 11.7 mmHg MV E/A: 0.76 MV V2 VTI: MV dec slope: MV dec time: 45.1 cm 0.21 sec 701.6 cm/sec2 LV V1 max: PA V2 max: TR max jayden: 103.7 cm/sec 88.2 cm/sec 297.3 cm/sec LV V1 max PG: PA max PG: TR max P.3 mmHg 4.3 mmHg 3.1 mmHg RAP systole: 5.0 mmHg RVSP(TR): 40.3 mmHg Left Ventricle The left ventricle is normal in size. There is normal left ventricular wall thickness. The left ventricular ejection fraction is normal. There is Doppler evidence for diastolic dysfunction. Ejection Fraction = 65%. The left ventricular wall motion is normal. Right Ventricle The right ventricle is normal in size and function. Atria The left atrial size is normal. Right atrial size is normal. Mitral Valve The anterior mitral valve leaflet appears thickened and restricted. There is no mitral valve stenosis. The mitral valve mean pressure gradient is 4 mmHg. There is trace to mild mitral regurgitation. Tricuspid Valve Normal tricuspid valve. There is mild tricuspid regurgitation. Right ventricular systolic pressure is 40mmHg. There is Doppler evidence for mild pulmonary hypertension. Aortic Valve The aortic valve opens well. There is no aortic stenosis. There is no aortic insufficiency. Pulmonic Valve The pulmonic valve is normal in structure and function. There is no pulmonic valvular regurgitation. Great Vessels The aortic root is normal size. Pericardium/Pleural There is no pericardial effusion. Conclusion A complete two-dimensional transthoracic echocardiogram was performed (2D, M-mode, Doppler and color flow Doppler). LVEF is normal at 65%. Diastolic dysfunction. The anterior mitral valve leaflet appears thickened and restricted. Trace to mild mitral regurgitation, Mild tricuspid regurgitation. There is Doppler evidence for mild pulmonary hypertension with RVSP of 40mm Hg Final Reading Physician: Kristen Vargas signed on 01/07/2017 04:41 PM Ordering Physician: Maryann Prater Performed By: Moshe Medina, [facility]
[2017-01-07] MEDS ORDERED: PRAMIPEXOLE 0.25 MG TAB PO SCH (21:00)
[2017-01-07] MEDS ORDERED: AMITRIPTYLINE HCL 50 MG TAB PO SCH (21:00)
[2017-01-07] MEDS ORDERED: TEMAZEPAM 15 MG CAP PO SCH (21:00)
[2017-01-07] MEDS ORDERED: PRAVASTATIN SODIUM 40 MG TAB PO SCH (21:00)
[2017-01-07] MEDS ORDERED: POLYETHYLENE GLYCOL 3350 17 GM PKT PO SCH (21:00)
[2017-01-07] MEDS: TEMAZEPAM 15 MG CAP PO SCH (21:47)
[2017-01-08] MEDS: IPRATROPIUM/ALBUTEROL 3 ML DEYVIAL IH SCH ×2 (05:52→10:35)
[2017-01-08 07:40] VITALS: BP 97/75; TEMP 98.4
[2017-01-08] MEDS: ENOXAPARIN 40 MG/0.4 ML SYR SC SCH (07:44)
[2017-01-08] MEDS: ASPIRIN 325 MG TAB PO SCH (07:44)
[2017-01-08] MEDS: OMEGA-3 FATTY ACIDS 1,000 MG CAP PO SCH (07:44)
[2017-01-08] MEDS: CLINDAMYCIN 1% TP PRN (07:44)
[2017-01-08] MEDS: SENNOSIDES/DOCUSATE SODIUM TAB PO SCH (07:45)
[2017-01-08] MEDS: ACETYLCYSTEINE 10% 30 ML VIAL IH SCH (07:47)
[2017-01-08] MEDS: ACETAMINOPHEN/CODEINE 300/30MG TAB PO PRN (07:48)
[2017-01-08] MEDS: LISINOPRIL 10 MG TAB PO SCH (07:48)
[2017-01-08] MEDS: PHENAZOPYRIDINE HCL 100 MG TAB PO PRN (07:48)
[2017-01-08] MEDS: CHOLECALCIFEROL VIT D3 1,000 UNITS TAB PO SCH (07:48)
[2017-01-08] MEDS: CYANO/VITAMIN B12 1000 MCG TAB PO SCH (07:49)
[2017-01-08] MEDS: INSULIN LISPRO 100 UNIT/ML SC SCH ×2 (07:50→13:26)
[2017-01-08] MEDS ORDERED: POTASSIUM CL 10 MEQ TAB PO ONE (08:00)
[2017-01-08] MEDS ORDERED: FUROSEMIDE 20 MG TAB PO ONE (08:00)
[2017-01-08] MEDS: BECLOMETHASONE QVAR 40 MDI IH SCH (10:35)
--- NOTE | 2017-01-08 10:43 | HOSPPROG ---
Hospitalist Progress Note Assessment/Plan: Patient is a 76y/o female who presented to the ER with cough, shortness of breath and fatigue. *Pneumonia bilateral lobe/ xray shows improvement from one in December on Ceftriaxone and Levaquin blood cx no growth afebrile on room air *acute hypoxemic respiratory failure on room air CTA in November 2016/no PE *EVA she wears o2 at night, but doesn't tolerate CPAP echo show mild pulm htn, Diastolic dysfunction *UTI/suspect she has chronic cystitis has increase frequency and urgency *reactive airway disease *Morbid Obesity possibly impacting the above could have underlying hypoventilation syndrome *Diabetes metformin on hold/ sliding scale *hx of PMR patient felt well while on oral steroids/ not on this *CKD stable *HTN bp low, but took a dose of lasix this morning *HLD *DVT prophylaxis: LMWH Subjective: Flaca is feeling well, no complaints. Objective: Vital Signs Temp Pulse Resp BP Pulse Ox 36.9 C 94 15 97/75 L 90 L 01/08/17 07:38 01/08/17 07:38 01/08/17 07:38 01/08/17 07:38 01/08/17 07:38 Laboratory Results 01/07/17 04:23 01/07/17 04:23 01/07/17 01/08/17 01/09/17 05:59 05:59 05:59 Intake Total 2075 4270 50 Output Total 700 6200 200 Balance 1375 -1930 -150 PT 13.2 SEC (12.0-15.0) 01/06/17 19:30 INR 1.01 (0.83-1.16) 01/06/17 19:30 - Physical Exam Constitutional: no apparent distress, obese Eyes: PERRL Ears, Nose, Mouth, Throat: hearing normal Cardiovascular: regular rate and rhythym Respiratory: no respiratory distress, no rales or rhonchi, clear to auscultation Gastrointestinal: normoactive bowel sounds Skin: warm Musculoskeletal: no muscle tenderness Neurologic: AAOx3 Psychiatric: interacting appropriately, not anxious ICD10 Worksheet Patient Problems: Problems Problem Status Onset Hypoxemia Acute Pneumonia Acute
[2017-01-08 10:45] VITALS: PULSE 88; RESP 14; O2SAT 94
--- NOTE | 2017-01-08 12:45 | GDS ---
[f rep st] DISCHARGE SUMMARY DISCHARGE DIAGNOSES: 1. Bilateral lobe pneumonia. 2. Acute hypoxemic respiratory failure. 3. Obstructive sleep apnea. 4. Pyuria, suspect chronic cystitis. 5. Reactive airway disease. 6. Morbid obesity. 7. Diabetes. 8. History of PMR. 9. Chronic kidney disease. 10. Hypertension. 11. Hyperlipidemia. BRIEF HISTORY: The patient is a 76-year-old female with a past medical history that includes reactive airway disease, obstructive sleep apnea, morbid obesity. She presented to the emergency room with several months of cough, shortness of breath and generalized fatigue. She has been treated on 3 separate occasions for right lower lobe pneumonia. She has been treated with Levaquin, Augmentin, and most recently a Z-Pradip. She says she continues to have ongoing cough and fatigue, as well as intermittent fever, increased sputum production. On admission, she had a chest x-ray performed that shows bilateral pneumonia, which appears similar to her last x-ray on December 30, with possible improvement. She was treated with IV antibiotics. She has been on room air. Today, she is feeling markedly better. She has a followup appointment with a tank charger. I suspect that she may have some underlying chronic bronchitis. HOSPITAL COURSE: 1. Bilateral lobe pneumonia, markedly better. Blood culture showed no growth. She is on room air. She has been afebrile. Leukocytosis has improved. 2. Acute hypoxemic respiratory failure. She had a CTA in November of 2016, which showed no PE. 3. Obstructive sleep apnea. She wears oxygen at night, but does not tolerate CPAP. Her echocardiogram shows mild pulmonary hypertension, as well as diastolic dysfunction. 4. Pyuria, suspect she has chronic cystitis. She said that this has been going on for years. She has seen a urologist in the past. Recommended that she see this doctor again. 5. Reactive airway disease. Stable. 6. Morbid obesity. This is likely impacting the above, she also could have some underlying hypoventilation syndrome. 7. Diabetes, resumed metformin. 8. History of polymyalgia rheumatica. She had been on steroids in the past that really helped her symptoms. Currently, she is not on them. She sees Dr. Benoit in the outpatient setting. 9. Chronic kidney disease, stable. 10. Hypertension. Blood pressure is a little bit low this morning. She did take a dose of Lasix, per her request, for some bilateral ankle swelling. 11. Hyperlipidemia. I resumed her statin therapy. PENDING LABS AND TESTS: None. CONDITION AT DISCHARGE: Stable. Blood pressure is 97/75, heart rate is 94, respiratory rate 15, O2 sats on room air 94%, temperature is 36.9 Celsius. MEDICATIONS AT DISCHARGE: Please see the EMR. DISCHARGE INSTRUCTIONS: 1. To take the Levaquin as instructed. To be aware this can cause tendinopathy. 2. I suspect she has chronic cystitis. She needs to follow up with her urologist. 3. She has some pulmonary hypertension, as well as diastolic dysfunction. She already has an appointment with Dr. Suazo, the tank charger. 4. To get a repeat chest x-ray in 6 weeks to make sure her pneumonia has completely resolved. Greater than 30 minutes discharging and coordinating care. /[id number]/MODL MTDD
== END 2017-01-08 16:29 | disposition home or self-care (01) | DRG 193 ==
LOC: OBSVTOIN 21:19 → F3N 22:23
PROVIDERS: ADMIT Internal Medicine; ATTEND Internal Medicine
DX: J18.9 Pneumonia, unspecified organism (principal); J96.01 Acute respiratory failure with hypoxia; N39.0 Urinary tract infection, site not specified; J45.909 Unspecified asthma, uncomplicated; E11.9 Type 2 diabetes mellitus without complications; I12.9 Hypertensive chronic kidney disease with stage 1 through stage 4 chronic kidney disease, or unspecified chronic kidney disease; N18.9 Chronic kidney disease, unspecified; E78.5 Hyperlipidemia, unspecified; E66.01 Morbid (severe) obesity due to excess calories; Z68.31 Body mass index [BMI] 31.0-31.9, adult; Z99.81 Dependence on supplemental oxygen
CPT/HCPCS: 96365; 97161-GP; 97165-GO; G8978-GP-CI; G8979-GP-CI; G8980-GP-CI; G8987-GO-CI; G8988-GO-CI; G8989-GO-CI; J0696; J1650; J1956

== ENCOUNTER → 2017-03-02 | Outpatient (CLI) | payer OTHER | LOC: BMCIMAGING 08:44 | PROVIDERS: ATTEND Internal Medicine | DX: J18.9 Pneumonia, unspecified organism (principal) ==

== ENCOUNTER → 2017-05-10 | Outpatient (CLI) | payer OTHER | LOC: BMCIMAGING 10:12 | PROVIDERS: ATTEND Internal Medicine | DX: J40 Bronchitis, not specified as acute or chronic (principal) ==

== ENCOUNTER → 2017-06-19 | Outpatient (CLI) | payer OTHER | LOC: FIMAGING 10:41 | PROVIDERS: ATTEND Internal Medicine Critical Care Medicine | DX: R91.1 Solitary pulmonary nodule (principal); I25.10 Atherosclerotic heart disease of native coronary artery without angina pectoris ==

== ENCOUNTER 2017-09-15 11:13 | Inpatient (IN) | payer OTHER ==
[2017-09-15] MEDS ORDERED: NS 1,000 ML IV ONE ×2 (12:06→13:15)
[2017-09-15 12:17] LABS: PLATELET COUNT 167 10^3/uL (150-400)
--- NOTE | 2017-09-15 12:36 | EDPHY ---
H & P Stated Complaint: Lower back pain dysuria x 2 days Time Seen by Provider: 09/15/17 11:52 - Personal History Current Tetanus/Diphtheria Vaccine: Unsure Current Tetanus Diphtheria and Acellular Pertussis (TDAP): Unsure Tetanus Vaccine Date: 2011 - Medical/Surgical History Hx Asthma: Yes Hx Chronic Respiratory Disease: Yes Hx Diabetes: Yes Hx Cardiac Disease: Yes Hx Renal Disease: Yes Hx Cirrhosis: No Hx Alcoholism: No Hx HIV/AIDS: No Hx Splenectomy or Spleen Trauma: No Other PMH: hysterectomy, bladder sx, tonsilectomy, asthma, restless leg, hyperlipedemia, EVA, insomnia, osteoarthritis, fibromyalgia, DM, HTN - Social History Smoking Status: Never smoked Constitutional: Initial Vital Signs Temperature (C) 36.9 C 09/15/17 11:26 Heart Rate 115 H 09/15/17 11:26 Respiratory Rate 20 09/15/17 11:26 Blood Pressure 90/58 L 09/15/17 11:26 O2 Sat (%) 94 09/15/17 11:26 O2 Delivery Mode Room Air Allergies/Adverse Reactions: sulfamethoxazole [From Bactrim] Allergy (Unknown, Verified 01/06/17 18:57) Other-Enter Comments trimethoprim [From Bactrim] Allergy (Unknown, Verified 01/06/17 18:57) Other-Enter Comments erythromycin base [Erythromycin Base] Allergy (Verified 01/06/17 18:57) STOMACH CRAMPS Home Medications: Medication Instructions Recorded Acetaminophen/Codeine 300/30Mg 1 each PO Q6 PRN 01/06/17 [Tylenol #3 (*)] Albuterol [Proventil Inhaler HFA 1 puffs IH TID PRN 01/06/17 (*)] Amitriptyline HCl [Elavil 50 mg 100 mg PO HS 01/06/17 (*)] Aspirin [Aspirin 325 mg (*)] 325 mg PO DAILY 01/06/17 Beclomethasone Qvar 40 [Qvar 40 1 puffs IH BID 01/06/17 (*)] Cholecalciferol Vit D3 [Vitamin D3 2,000 units PO DAILY 01/06/17 (*)] Cyanocobalamin [Vitamin B12 (*)] 2,000 mcg PO DAILY 01/06/17 Cyclobenzaprine [Flexeril 10 MG 10 mg PO HS PRN 01/06/17 (*)] Docusate Sodium [Colace 100 MG (*)] 100 mg PO HS PRN 01/06/17 Lisinopril [Zestril 10 mg (*)] 10 mg PO DAILY 01/06/17 [place]-3 Fatty Acids/Fish Oil 4 each PO DAILY 01/06/17 [[place] 3 Fish Oil Softgel] Polyethylene Glycol 3350 [Miralax 17 gm PO HS 01/06/17 17 gm (*)] Pramipexole Di-HCl [Mirapex 0.25 0.25 mg PO HS 01/06/17 mg (*)] Pravastatin Sodium [Pravachol] 40 mg PO HS 01/06/17 Temazepam [Restoril] 30 mg PO HS 01/06/17 metFORMIN HCL [Metformin HCl] 500 mg PO BID 01/06/17 Acetaminophen [Tylenol 325mg (*)] 650 mg PO Q4HRS PRN #0 tab 01/08/17 Phenazopyridine HCl [Pyridium] 200 mg PO TID PRN #0 tab 01/08/17 levOFLOXACIN [levAQUIN (*)] 750 mg PO DAILY #5 tab 01/08/17 Medical Decision Making - Diagnostics Imaging: Discussed imaging studies w/ manager call center Radiologist, I viewed and interpreted images myself ED Course/Re-evaluation: CHIEF COMPLAINT: Abdominal pain. HISTORY OF PRESENT ILLNESS: The patient is a 77 y/o female arriving with her friend complaining of malaise, abdominal pain, and dysuria onset last night. Her medical history including recurrent UTIs, diabetes, and hypertension. She has been constipated for 3 days without a bowel movement until her daughter administered an enema last night. She had a successful bowel movement, but then developed brownish-orange diarrhea. She notes she has been using Pyridium for concurrent dysuria symptoms. She has had difficulty urinating today and is requesting a Madrigal while here as well. She developed lower abdominal pain this morning that is worst in her LLQ and extends to her back. She has a history of a hysterectomy and bladder surgery. REVIEW OF SYSTEMS: A 10 point review of systems was performed and is negative with the exception of the elements mentioned in the history of present illness. PHYSICAL EXAM: HR, BP, O2 Sat, RR. Temp noted General Appearance: Alert, well hydrated, appropriate, and non-toxic appearing. Head: Atraumatic without scalp tenderness or obvious injury Eyes: Pupils equal, round, reactive to light and accommodation, EOMI, no trauma , no injection. Nose: Atraumatic, no rhinorrhea, clear. Throat: Mucus membranes moist. Neck: Supple Respiratory: No retractions, no distress, no wheezes, and no accessory muscle use. Lungs are clear to auscultation bilaterally. Cardiovascular: Regular rate and rhythm, no murmurs, rubs, or gallops. Good capillary refill all extremities. Gastrointestinal: Abdomen is soft, lower quadrant tenderness worst in LLQ, non- distended, no masses, no rebound, no guarding, no peritoneal signs. Musculoskeletal: Normal active ROM of all extremities, atraumatic. Neurological: Alert, appropriate, and interactive. The patient has non-focal cranial nerves, motor, sensory, and cerebellar exam. Skin: No rashes, good turgor, no nodules on palpation. PAST MEDICAL HISTORY: Recurrent UTIs, hyperlipidemia, EVA, insomnia, fibromyalgia, diabetes, hypertension, asthma. PAST SURGICAL HISTORY: Hysterectomy, bladder surgery, tonsillectomy SOCIAL HISTORY: Friend at bedside. Lives in [place] retired. DIAGNOSTICS/PROCEDURES/CRITICAL CARE TIME: Abdominal CT: diffuse colitis DIFFERENTIAL DIAGNOSIS: The differential diagnosis for the patient's abdominal pain included but was not limited to ovarian cyst, pelvic inflammatory disease, ovarian torsion, urinary tract infection, ectopic , cholecystitis, and appendicitis. MEDICAL DECISION MAKING: This is a 77 y/o female who presents with a 3-day history of constipation with urinary retention and abdominal pain onset this morning. Her constipation turned to diarrhea following an enema last night and she also believes she has a UTI due to urinary symptoms. She has lower abdominal tenderness on exam. She is not currently tachycardic. Plan for IV, labs, UA, and abdominal CT. Madrigal ordered at patient's request for urinary retention. Lab was unable to completely process UA due to discoloration. WBCs noted in urine in conjunction with her urinary symptoms indicates a UTI. 1gm IV Ceftriaxone ordered. Creatinine elevated at 2.3, so CT will need to be without contrast. WBC elevated at 25. Lactate normal. Patient does not meet sepsis criteria. Spoke with hospitalist service. Dr. Hollingsworth accepts admission. CT shows diffuse colitis. - Data Points Laboratory Results: Laboratory Results 09/15/17 12:00 09/15/17 12:50 09/15/17 09/15/17 09/15/17 13:10 12:50 12:50 WBC RBC Hgb Hct MCV MCH MCHC RDW Plt Count MPV Neut % (Auto) Lymph % (Auto) [place] % (Auto) Eos % (Auto) Baso % (Auto) Nucleat RBC Rel Count Absolute Neuts (auto) Absolute Lymphs (auto) Absolute Monos (auto) Absolute Eos (auto) Absolute Basos (auto) Absolute Nucleated RBC Immature Gran % Seg Neutrophils % Band Neutrophils % Lymphocytes % Monocytes % Immature Gran # Absolute Seg Neuts Absolute Band Neuts Absolute Lymphocytes Absolute Monocytes RBC/WBC/PLT Morphology Platelet Estimate PT 15.5 SEC H SEC (12.0-15.0) INR 1.21 H (0.83-1.16) APTT 28.0 SEC SEC (23.0-38.0) VBG Lactic Acid Sodium 137 mEq/L mEq/L (135-145) Potassium 4.5 mEq/L mEq/L (3.5-5.2) Chloride 102 mEq/L mEq/L (97-110) Carbon Dioxide 20 mEq/l L mEq/l (22-31) Anion Gap 15 mEq/L mEq/L (8-16) BUN 51 mg/dL H mg/dL (7-23) Creatinine 2.3 mg/dL H mg/dL (0.6-1.0) Estimated GFR 21 Glucose 136 mg/dL H mg/dL (70-100) Calcium 8.5 mg/dL mg/dL (8.5-10.4) Total Bilirubin 0.8 mg/dL mg/dL (0.1-1.4) AST ALT Alkaline Phosphatase Total Protein Albumin Urine Color RED Urine Appearance HAZY Urine pH 5.0 (5.0-7.5) Ur Specific [place] 1.019 (1.002-1.030) Urine Protein TNP Urine Ketones TNP Urine Blood TNP Urine Nitrate TNP Urine Bilirubin TNP Urine Urobilinogen TNP Ur Leukocyte Esterase TNP Urine RBC NONE SEEN /hpf /hpf (0-3) Urine WBC 15-25 /hpf H /hpf (0-3) Ur Epithelial Cells NONE SEEN /lpf /lpf (NONE-1+) Urine Glucose TNP 09/15/17 09/15/17 09/15/17 12:50 12:00 12:00 WBC 25.13 10^3/uL H 10^3/uL (3.80-9.50) RBC 4.32 10^6/uL 10^6/uL (4.18-5.33) Hgb 14.7 g/dL g/dL (12.6-16.3) Hct 41.8 % % (38.0-47.0) MCV 96.8 fL fL (81.5-99.8) MCH 34.0 pg pg (27.9-34.1) MCHC 35.2 g/dL g/dL (32.4-36.7) RDW 13.2 % % (11.5-15.2) Plt Count 167 10^3/uL 10^3/uL (150-400) MPV 11.5 fL fL (8.7-11.7) Neut % (Auto) Not Reported Lymph % (Auto) Not Reported [place] % (Auto) Not Reported Eos % (Auto) Not Reported Baso % (Auto) Not Reported Nucleat RBC Rel Count 0.0 % % (0.0-0.2) Absolute Neuts (auto) Not Reported Absolute Lymphs (auto) Not Reported Absolute Monos (auto) Not Reported Absolute Eos (auto) Not Reported Absolute Basos (auto) Not Reported Absolute Nucleated RBC 0.00 10^3/uL 10^3/uL (0-0.01) Immature Gran % Not Reported Seg Neutrophils % 84 % % Band Neutrophils % 5 % % Lymphocytes % 4 % % Monocytes % 7 % % Immature Gran # Not Reported Absolute Seg Neuts 21.11 10^/uL H 10^/uL (1.70-6.50) Absolute Band Neuts 1.26 10^3/uL H 10^3/uL (0.00-0.70) Absolute Lymphocytes 1.01 10^3/uL 10^3/uL (1.00-3.00) Absolute Monocytes 1.76 10^3/uL H 10^3/uL (0.30-0.80) RBC/WBC/PLT Morphology NORMAL (NORMAL) Platelet Estimate ADEQUATE (ADEQ) PT INR APTT VBG Lactic Acid 1.8 mmol/L mmol/L (0.7-2.1) Sodium Pending Potassium Pending Chloride Pending Carbon Dioxide Pending Anion Gap Pending BUN Pending Creatinine Pending Estimated GFR Pending Glucose Pending Calcium Pending Total Bilirubin Pending AST Pending ALT Pending Alkaline Phosphatase Pending Total Protein Pending Albumin Pending Urine Color Urine Appearance Urine pH Ur Specific [place] Urine Protein Urine Ketones Urine Blood Urine Nitrate Urine Bilirubin Urine Urobilinogen Ur Leukocyte Esterase Urine RBC Urine WBC Ur Epithelial Cells Urine Glucose Medications Given: Discontinued Medications Sodium Chloride (Ns) 1,000 mls @ 0 mls/hr IV EDNOW ONE; Wide Open PRN Reason: Protocol Stop: 09/15/17 12:07 Last Admin: 09/15/17 12:09 Dose: 1,000 mls Sodium Chloride (Ns) 1,000 mls @ 0 mls/hr IV ONCE ONE PRN Reason: Wide Open Stop: 09/15/17 13:16 Last Admin: 09/15/17 13:32 Dose: 1,000 mls Ceftriaxone Sodium/Dextrose (Rocephin 1 Gm (Premix)) 50 mls @ 100 mls/hr IV EDNOW ONE PRN Reason: Protocol Stop: 09/15/17 14:47 Last Admin: 09/15/17 14:55 Dose: 50 mls Departure - Departure Disposition: [facility] Inpatient Acute Clinical Impression: Urinary retention, Renal insufficiency, Pyelonephritis, Colitis Diarrhea Qualifiers: Diarrhea type: unspecified type Qualified Code(s): R19.7 - Diarrhea, unspecified Abdominal pain Qualifiers: Abdominal location: lower abdomen, unspecified Qualified Code(s): R10.30 - Lower abdominal pain, unspecified Condition: Fair Report Scribed for: Trent Henson Report Scribed by: Mattie Perez Date of Report: 09/15/17 Time of Report: 14:10
[2017-09-15 13:11] LABS: INR 1.21 (0.83-1.16); PROTIME(PATIENT) 15.5 SEC (12.0-15.0)
[2017-09-15] MEDS ORDERED: ERTAPENEM 1 GM VIAL IVP ONE (14:56)
--- NOTE | 2017-09-15 16:54 | PDGENHP ---
History and Physical - Chief Complaint malaise, dysuria, abd pain, flank pain - History of Present Illness The patient is a 77 y/o female complaining of malaise, abdominal pain, and dysuria onset last night. She has had dysuria and progressive bilateral flank pain x 1 days. She has been taking Pyridium she had cataracts surgery yesterday she has been having constipation for a few days and had an enema yesterday and then developed diarrhea She c/o of diffuse abd pain, but worse on the left side She is hypoxic requiring 3 L but does not feel SOB. She does have a hx of CHF and she does take diuretics at home. She has not taken any diuretics for several days. She does not have any pedal edema. She has been afebrile. She denies cough. She denies SOB. she does have a hx of nocturnal hypoxemia requiring 2 LO2 but none during the day. She also has a hx of EVA, but she does not use a CPAP She was found to have tachycardia, hypotension, and acute renal failure in the E.D. She was started on both Rocephin and Invanz. A CXR was not ordered. She has Leukocytosis Serum Lactate was unremarkable She has been given 2 L of IVF Liriano was placed Lab was unable to completely process UA due to discoloration. She denies cp, sob, n/v. NO further diarrhea. no pedal edema. She denies Fever. She has significant bilateral flank pain. no focal weakness. feels that her mouth is dry. + dysuria and urinary frequency. + abd pain. PAST MEDICAL HISTORY: Recurrent UTIs, hyperlipidemia, EVA, insomnia, fibromyalgia, diabetes, hypertension, asthma. PAST SURGICAL HISTORY: Hysterectomy, bladder surgery, tonsillectomy SOCIAL HISTORY: Friend at bedside. Lives in [place] retired. DATA: Abdominal CT, non contrast: diffuse colitis of Left Hemicolon. No bladder wall thickening, hydronephrosis, hydroureter, nephrolithiasis, ureteral calculi, bladder stones. History Information - Allergies/Home Medication List Allergies/Adverse Reactions: sulfamethoxazole [From Bactrim] Allergy (Unknown, Verified 01/06/17 18:57) Other-Enter Comments trimethoprim [From Bactrim] Allergy (Unknown, Verified 01/06/17 18:57) Other-Enter Comments erythromycin base [Erythromycin Base] Allergy (Verified 01/06/17 18:57) STOMACH CRAMPS Home Medications: Acetaminophen/Codeine 300/30Mg [Tylenol #3 (*)] 1 each PO Q6 PRN 01/06/17 [Last Taken 09/14/17] Albuterol [Proventil Inhaler HFA (*)] 1 puffs IH Q4-6PRN PRN 01/06/17 [Last Taken 01/06/17] Amitriptyline HCl [Elavil 50 mg (*)] 100 mg PO HS 01/06/17 [Last Taken 09/13/17] Aspirin [Aspirin 325 mg (*)] 325 mg PO HS 01/06/17 [Last Taken 09/13/17] Beclomethasone Qvar 40 [Qvar 40 (*)] 2 puffs IH BID PRN 01/06/17 [Last Taken 01/18 09:00] Cyclobenzaprine [Flexeril 10 MG (*)] 10 mg PO HS 01/06/17 [Last Taken 09/13/17] Docusate Sodium [Colace 100 MG (*)] 100 mg PO HS PRN 01/06/17 [Last Taken ] Lisinopril [Zestril 10 mg (*)] 20 mg PO DAILY 01/06/17 [Last Taken 09/13/17] Pramipexole Di-HCl [Mirapex 0.25 mg (*)] 0.25 mg PO HS 01/06/17 [Last Taken 06/21] Pravastatin Sodium [Pravachol] 40 mg PO HS 01/06/17 [Last Taken 09/13/17] Temazepam [Restoril] 30 mg PO HS 01/06/17 [Last Taken 09/14/17] metFORMIN HCL [Metformin HCl] 500 mg PO BIDMEAL 01/06/17 [Last Taken 09/13/17] Bromfenac Sodium [Bromsite] 1 drop RTEYE DAILY 09/15/17 [Last Taken Unknown] Furosemide [Lasix 20 MG (*)] 20 mg PO DAILY PRN 09/15/17 [Last Taken Unknown] Gatifloxacin 0.5% [Zymaxid 0.5%] 1 drop RTEYE Q2 09/15/17 [Last Taken Unknown] Magnesium Oxide [Magnesium Oxide 500 mg] 500 mg PO DAILY 09/15/17 [Last Taken Unknown] [place]-3 Fatty Acids [Fish Oil 1000 mg (*)] 2,000 mg PO BID 09/15/17 [Last Taken 09/13/17] Potassium Cl [Klor-Con] 10 meq PO DAILY PRN 09/15/17 [Last Taken Unknown] prednisoLONE ACET 1% [Pred Forte 1% (*)] 1 drops RTEYE QID 09/15/17 [Last Taken Unknown] I have personally reviewed and updated: medical history, social history - Social History Smoking Status: Never smoked Review of Systems Review of Systems: ROS: 10pt was reviewed & negative except for what was stated in HPI & below Physical Exam Physical Exam: Temp Pulse Resp BP Pulse Ox 37.1 C 97 18 101/5 L 96 09/15/17 15:49 09/15/17 15:49 09/15/17 15:49 09/15/17 15:49 09/15/17 15:49 O2 (L/minute) 3 Constitutional: no apparent distress Eyes: PERRL, EOMI Ears, Nose, Mouth, Throat: dry mucous membranes Cardiovascular: tachycardia, No JVD, No edema Respiratory: no respiratory distress, no rales or rhonchi, clear to auscultation Gastrointestinal: tenderness (generalized ttp, worse LLQ), distension, No guarding, No rebound Skin: warm Musculoskeletal: full muscle strength Neurologic: AAOx3 Psychiatric: interacting appropriately, not anxious, not encephalopathic, thought process linear, encephalopathic Lymph, Heme, Immunologic: No petechiae Lab Data & Imaging Review 09/15/17 12:00 09/15/17 12:50 WBC 25.13 10^3/uL (3.80-9.50) H 09/15/17 12:00 RBC 4.32 10^6/uL (4.18-5.33) 09/15/17 12:00 Hgb 14.7 g/dL (12.6-16.3) 09/15/17 12:00 Hct 41.8 % (38.0-47.0) 09/15/17 12:00 MCV 96.8 fL (81.5-99.8) 09/15/17 12:00 MCH 34.0 pg (27.9-34.1) 09/15/17 12:00 MCHC 35.2 g/dL (32.4-36.7) 09/15/17 12:00 RDW 13.2 % (11.5-15.2) 09/15/17 12:00 Plt Count 167 10^3/uL (150-400) 09/15/17 12:00 MPV 11.5 fL (8.7-11.7) 09/15/17 12:00 Neut % (Auto) Not Reported 09/15/17 12:00 Lymph % (Auto) Not Reported 09/15/17 12:00 [place] % (Auto) Not Reported 09/15/17 12:00 Eos % (Auto) Not Reported 09/15/17 12:00 Baso % (Auto) Not Reported 09/15/17 12:00 Nucleat RBC Rel Count 0.0 % (0.0-0.2) 09/15/17 12:00 Absolute Neuts (auto) Not Reported 09/15/17 12:00 Absolute Lymphs (auto) Not Reported 09/15/17 12:00 Absolute Monos (auto) Not Reported 09/15/17 12:00 Absolute Eos (auto) Not Reported 09/15/17 12:00 Absolute Basos (auto) Not Reported 09/15/17 12:00 Absolute Nucleated RBC 0.00 10^3/uL (0-0.01) 09/15/17 12:00 Immature Gran % Not Reported 09/15/17 12:00 Seg Neutrophils % 84 % 09/15/17 12:00 Band Neutrophils % 5 % 09/15/17 12:00 Lymphocytes % 4 % 09/15/17 12:00 Monocytes % 7 % 09/15/17 12:00 Immature Gran # Not Reported 09/15/17 12:00 Absolute Seg Neuts 21.11 10^/uL (1.70-6.50) H 09/15/17 12:00 Absolute Band Neuts 1.26 10^3/uL (0.00-0.70) H 09/15/17 12:00 Absolute Lymphocytes 1.01 10^3/uL (1.00-3.00) 09/15/17 12:00 Absolute Monocytes 1.76 10^3/uL (0.30-0.80) H 09/15/17 12:00 RBC/WBC/PLT Morphology NORMAL (NORMAL) 09/15/17 12:00 Platelet Estimate ADEQUATE (ADEQ) 09/15/17 12:00 PT 15.5 SEC (12.0-15.0) H 09/15/17 12:50 INR 1.21 (0.83-1.16) H 09/15/17 12:50 APTT 28.0 SEC (23.0-38.0) 09/15/17 12:50 VBG Lactic Acid 1.8 mmol/L (0.7-2.1) 09/15/17 12:50 Sodium 137 mEq/L (135-145) 09/15/17 12:50 Potassium 4.5 mEq/L (3.5-5.2) 09/15/17 12:50 Chloride 102 mEq/L (97-110) 09/15/17 12:50 Carbon Dioxide 20 mEq/l (22-31) L 09/15/17 12:50 Anion Gap 15 mEq/L (8-16) 09/15/17 12:50 BUN 51 mg/dL (7-23) H 09/15/17 12:50 Creatinine 2.3 mg/dL (0.6-1.0) H 09/15/17 12:50 Estimated GFR 21 09/15/17 12:50 Glucose 136 mg/dL (70-100) H 09/15/17 12:50 Calcium 8.5 mg/dL (8.5-10.4) 09/15/17 12:50 Total Bilirubin 0.8 mg/dL (0.1-1.4) 09/15/17 12:50 Urine Color RED 09/15/17 13:10 Urine Appearance HAZY 09/15/17 13:10 Urine pH 5.0 (5.0-7.5) 09/15/17 13:10 Ur Specific [place] 1.019 (1.002-1.030) 09/15/17 13:10 Urine Protein TNP 09/15/17 13:10 Urine Ketones TNP 09/15/17 13:10 Urine Blood TNP 09/15/17 13:10 Urine Nitrate TNP 09/15/17 13:10 Urine Bilirubin TNP 09/15/17 13:10 Urine Urobilinogen TNP 09/15/17 13:10 Ur Leukocyte Esterase TNP 09/15/17 13:10 Urine RBC NONE SEEN /hpf (0-3) 09/15/17 13:10 Urine WBC 15-25 /hpf (0-3) H 09/15/17 13:10 Ur Epithelial Cells NONE SEEN /lpf (NONE-1+) 09/15/17 13:10 Urine Glucose TNP 09/15/17 13:10 Assessment & Plan Assessment: #Likely Sepsis with Hypotension, tachycardia, e/o end organ damage with acute renal failure -source unclear, likely urinary -CXR has not been done, but hypoxic -diffuse colitis on CT #Likely Pyelonephritis and UTI -Bilateral CVA tenderness on exam noted, unclear why she has bilateral tendernesss #Acute renal failure #Urinary Retention #Acute on chronic respiratory failure #Hx of CHF, will hold home diuretics #Diffuse left sided colitis Plan: -She has been admitted to [facility], she may need higher level of care pending further w/u and clinical progress -Cont IVF, will need to go slow given her likelihood of developing CHF -Stat CXR, her lung exam is overall reassuring, further reccs pending CXR. -If BP drops despite IVF or if she develops pulm edema with current IVF, she will need pressors -Cont with antibiotics. She was given both Rocephin and Invanz in the E.D, I will continue Invanz alone for now. I'm holding MRSA coverage for now. -F/u BCx and UCx -Keep liriano, strict I's and O's -Check TTE -Full Code -Heparin for DVT proph Total critical care time is 65 minutes
[2017-09-15] MEDS: NS 1,000 ML IV SCH (16:58)
[2017-09-15] MEDS ORDERED: ONDANSETRON DISINTEGRATING 4 MG TAB PO PRN (17:02)
[2017-09-15] MEDS ORDERED: ONDANSETRON 4 MG/2 ML VIAL IVP PRN (17:02)
[2017-09-15] MEDS ORDERED: ALBUTEROL 3 ML DEYVIAL IH PRN (17:02)
[2017-09-15] MEDS ORDERED: DOCUSATE SODIUM 100 MG CAP PO PRN (17:07)
[2017-09-15] MEDS ORDERED: BECLOMETHASONE QVAR 40 MDI IH PRN (17:07)
--- NOTE | 2017-09-15 17:20 | PDMN ---
Medical Necessity Medical necessity: C/M review: est. > 2 MN LOS for eval and TX of acute and persistent likely sepsis, pyelonephritis, UTI, renal failure, respiratory failure, urinary retention, diffuse left sided colitis requiring planned echocardiogram, IV Invanz, IV fluids, acute inpt PT, comorbid history of chronic respiratory failure, CHF per H/P.
[2017-09-15] MEDS ORDERED: NON-FORMULARY NEW DRUG (Temazepam [Restoril] 30 MG) PO SCH (21:00)
[2017-09-15] MEDS: HEPARIN 5,000 UNIT/0.5 ML SYR SC SCH (21:07)
[2017-09-15] MEDS: oxyCODONE IR 5 MG TAB PO PRN (21:12)
[2017-09-15] MEDS: ACETAMINOPHEN 325 MG TAB PO PRN (21:13)
[2017-09-15] MEDS: prednisoLONE ACET 1% 5 ML OPHT.BTL RTEYE SCH (21:14)
[2017-09-15] MEDS: ASPIRIN 325 MG TAB PO SCH (21:14)
[2017-09-15] MEDS: AMITRIPTYLINE HCL 100 MG TAB PO SCH (21:14)
[2017-09-15] MEDS: BROMFENAC SODIUM RTEYE SCH (21:14)
[2017-09-15] MEDS: CYCLOBENZAPRINE 10 MG TAB PO SCH (21:14)
[2017-09-15] MEDS: TEMAZEPAM 15 MG CAP PO SCH (21:14)
[2017-09-16] MEDS: NS 1,000 ML IV SCH ×2 (01:30→10:29)
[2017-09-16] MEDS: HEPARIN 5,000 UNIT/0.5 ML SYR SC SCH ×3 (05:13→22:49)
[2017-09-16] MEDS: prednisoLONE ACET 1% 5 ML OPHT.BTL RTEYE SCH ×4 (05:15→20:37)
[2017-09-16 05:34] LABS: PLATELET COUNT 117 10^3/uL (150-400)
[2017-09-16] MEDS ORDERED: NON-FORMULARY NEW DRUG (Magnesium Oxide [Magnesium Oxide 500 Mg] 500 MG) PO SCH (09:00)
[2017-09-16] MEDS: BROMFENAC SODIUM RTEYE SCH ×2 (09:38→20:39)
[2017-09-16] MEDS: ERTAPENEM 1 GM VIAL IVP SCH (09:39)
[2017-09-16] MEDS: MAGNESIUM OXIDE 400 MG TAB PO SCH (09:39)
[2017-09-16] MEDS: LISINOPRIL 10 MG TAB PO SCH (09:39)
[2017-09-16] MEDS: oxyCODONE IR 5 MG TAB PO PRN ×2 (11:16→20:35)
--- NOTE | 2017-09-16 11:47 | HOSPPROG ---
Hospitalist Progress Note Assessment/Plan: 77-year-old female admitted following cataract surgery with tachypnea leukocytosis tachycardia and hypotension. CT scan showed colitis through the entire colon and urinalysis and cultures confirmed an acute UTI and pyelonephritis with Staph aureus. Patient was started on Invanz which will be continued and vancomycin will be added. Patient new to me today -sepsis with hypotension leukocytosis and tachycardia secondary to acute urinary tract infection with Staph aureus, blood cultures are pending. She has undergone fluid resuscitation successfully and her IV fluids will be diminished. She is currently alert and taking some fluids. -acute pyelonephritis/UTI with Staph aureus. Patient be placed on vancomycin. -diarrhea, acute colitis noted on CT scan with abdominal pain consistent with this finding. The Invanz will be continued. GI pathogen panel is pending. -acute respiratory failure secondary to sepsis. Patient has known EVA and uses nighttime oxygen but does not require oxygen during the day. Her hypoxia is currently improving although she continues to require O2. -acute kidney injury secondary to dehydration hypotension and sepsis as that is now improving with fluid hydration Plan: Continue gentle fluid hydration and Invanz, add vancomycin for Staph aureus UTI and follow the abdominal exam regarding the diarrhea and colitis. We are awaiting a GI panel. Time 50 min Subjective: Reports she is feeling much better than she did this morning. Denies chest pain shortness of breath she continues to have abdominal pain and back pain. Objective: Vital Signs Temp Pulse Resp BP Pulse Ox 36.6 C 94 18 105/66 93 09/16/17 11:06 09/16/17 11:06 09/16/17 11:06 09/16/17 11:06 09/16/17 11:06 Laboratory Results 09/16/17 04:27 09/16/17 04:27 09/15/17 09/16/17 09/17/17 05:59 05:59 05:59 Intake Total 2100 Output Total 1440 550 Balance 660 -550 PT 15.5 SEC (12.0-15.0) H 09/15/17 12:50 INR 1.21 (0.83-1.16) H 09/15/17 12:50 Laboratory Tests 09/15/17 09/15/17 09/15/17 12:00 12:50 12:50 WBC 25.13 H Hgb 14.7 INR 1.21 H VBG Lactic Acid 1.8 BUN Creatinine Magnesium 09/15/17 09/16/17 09/16/17 12:50 04:27 04:27 WBC 16.80 H D Hgb 11.1 L INR VBG Lactic Acid BUN 51 H 41 H Creatinine 2.3 H 1.5 H Magnesium 1.3 L - Time Spent With Patient Time Spent with Patient: greater than 35 minutes Time Spent with Patient: Greater than 35 minutes spent on this patients care, greater than 50% of time spent counseling, educating, and coordinating care regarding the above mentioned plan. - Pending Discharge Pending Discharge Within 24 Hours: No Pending Discharge Within 48 Hours: No - Physical Exam Constitutional: other (Acutely ill appearing) Eyes: PERRL, anicteric sclera Ears, Nose, Mouth, Throat: moist mucous membranes, hard of hearing Cardiovascular: regular rate and rhythym, no murmur, rub, or gallop Respiratory: reduced air movement, bronchial breath sounds, rhonchi Gastrointestinal: tenderness, distension, other (CVAs are tender bilaterally with worse on the left than on the right.) Genitourinary: no bladder fullness, other (Madrigal in place) Skin: warm Musculoskeletal: generalized weakness Neurologic: AAOx3, CN II-XII Intact Psychiatric: interacting appropriately ICD10 Worksheet Patient Problems: Problems Problem Status Onset Urinary retention Acute Diarrhea Acute Abdominal pain Acute Renal insufficiency Acute Pyelonephritis Acute Colitis Acute Chronic Disease Mgmt/Transitional Care Acute Pneumonia Acute Hypoxemia Acute
--- NOTE | 2017-09-16 12:02 | ECHO ---
[email or web address] [address] Main: [phone] Fax: Transthoracic Echocardiogram Name: JEANNA CARPENTER MR#: [id number] Study Date: 09/16/2017 Study Time: 09:44 AM Date of : 1940 Age: 77 year(s) Height: ( ) Weight: ( ) BSA: Gender: Female Examination: Echo Indication: Image Quality: Technically Difficult Contrast: Requested by: Tad Hollingsworth BP: 101 mmHg/60 mmHg Heart Rate: Rhythm: Indication: Procedure Staff Field Mechanic/Site Lead: Bryanna Dozier Reading Physician: Bailey Woo Requesting Provider: Conclusions: Left ventricle upper limits of normal. Normal global systolic LV function. EF is 60 %. There is paradoxic septal motion suggestive of bundle branch block, paced cardiac rhythm, or prior cardiac surgery. Grade 1 diastolic dysfunction (abnormal relaxation). Mildly dilated right ventricle. Normal RV function. Mild tricuspid regurgitation is present. Right Ventricular systolic pressure is measured at 46 mmHg. Compared with 07/2017 echo RV is now mildly dilated Measurements: Chambers Valvular Assessment AV/MV Valvular Assessment TV/PV Normal Normal Normal Name Value Range Name Value Range Name Value Range IVSd (2D): 0.9 cm (0.6 cm-1.1 AV meanP mmHg ( - ) TR Vmax: 2.99 mm/s ( - ) cm) LVOT Vmax: 1.10 m/s (0.7 m/s-1.1 TR PGmax: 36 mmHg ( - ) LVDd (2D): 4.2 cm (3.9 cm-5.3 m/s) syst. PAP: 46 mmHg ( - ) cm) MV E Vmax: 0.78 m/s ( - ) PV Vmax: 1.11 m/s (0.6 m/s-0.9 LVDs (2D): 2.9 cm (2.1 cm-4 MV A Vmax: 1.39 m/s ( - ) m/s) cm) MV E/A: 0.56 ( - ) PV PGmax: 5 mmHg ( - ) LVPWd (2D): 0.9 cm ( - ) MV meanP mmHg ( - ) LVEF (2D): 60 (>=54 %) Continued Measurements: Chambers Valvular Assessment AV/MV Valvular Assessment TV/PV Patient: JEANNA ACRPENTER Study Date: 09/16/2017 Page 1 of 2 09:44 AM Name Value Name Value Name Value LADs Lon.0 cm MV DecTime: 156 m/s CVP (est.): 10 mmHg LA Area: 16.7 cm2 MV VTI: 28.10 cm TAPSE: 1.9 cm Findings: Left Ventricle: Left ventricle upper limits of normal. Normal global systolic LV function. EF is 60 %. There is paradoxic septal motion suggestive of bundle branch block, paced cardiac rhythm, or prior cardiac surgery. Grade 1 diastolic dysfunction (abnormal relaxation). Right Ventricle: Mildly dilated right ventricle. Normal RV function. Left Atrium: The left atrium is normal in size. Right Atrium: The right atrium is normal in size. Mitral Valve: Trivial mitral valve regurgitation. No mitral stenosis is present. There is mild thickening and restriction of the anterior MV leaflet.. Aortic Valve: The aortic valve is normal in appearance and function. No aortic valve stenosis is present. There is no significant aortic valve regurgitation. Tricuspid Valve: The tricuspid valve is normal in appearance and function. Mild tricuspid regurgitation is present. Right Ventricular systolic pressure is measured at 46 mmHg. Pulmonic Valve: Pulmonary valve not well visualized. There is no pulmonic regurgitation seen. IVC: Normal size and course of the IVC. Pericardium: No pericardial effusion. There is pericardial fat. (No Signature Object) Patient: JEANNA CARPENTER Study Date: 09/16/2017 Page 2 of 2 09:44 AM [id number]
[2017-09-16] MEDS: GATIFLOXACIN 0.5% 2.5 ML OPHT DROPS RTEYE SCH ×5 (13:54→22:49)
[2017-09-16] MEDS ORDERED: AMPICILLIN SODIUM 1 GM in NS 50 ML IV SCH (14:00)
--- NOTE | 2017-09-16 15:25 | ASMTCMCOM ---
CM Note CM Note Notes: Spoke w/pt and holly who lives with her and is a ASSOCIATE ACCOUNT DIRECTOR re; dc poc. PT recommends SNF but pt adamantly refuses, also refuses homecare, stating normally is independent at home and is only weak right now. CM advised pt and holly, should anything change we can set up SNF/HC DC Plan: Home independent w/support of holly Date Signed: 09/16/2017 03:24 PM Electronically Signed By:Alina Gaytan RN
[2017-09-16] MEDS: VANCOMYCIN HCL/NORMAL SALINE 250 ML IV SCH (16:16)
[2017-09-16] MEDS ORDERED: AMPICILLIN SODIUM 2 GM in NS 100 ML IV SCH (18:00)
[2017-09-16] MEDS: CYCLOBENZAPRINE 10 MG TAB PO SCH (20:35)
[2017-09-16] MEDS: ACETAMINOPHEN 325 MG TAB PO PRN (20:35)
[2017-09-16] MEDS: TEMAZEPAM 15 MG CAP PO SCH (20:35)
[2017-09-16] MEDS: AMITRIPTYLINE HCL 100 MG TAB PO SCH (20:36)
[2017-09-16] MEDS: ASPIRIN 325 MG TAB PO SCH (20:36)
--- NOTE | 2017-09-16 21:20 | CPEKG ---
Heart Rate: 103 RR Interval: 583 P-R Interval: 160 QRSD Interval: 72 QT Interval: 308 QTC Interval: 403 P [place]: 52 QRS [place]: 14 T Wave [place]: 77 EKG Severity - ABNORMAL ECG - EKG Impression: SINUS TACHYCARDIA EKG Impression: VENTRICULAR BIGEMINY EKG Impression: PROBABLE LEFT ATRIAL ABNORMALITY EKG Impression: BORDERLINE T ABNORMALITIES, ANT-LAT LEADS Electronically Signed By: Ottoniel Orona 17-Sep-2017 08:50:34
[2017-09-17] MEDS: GATIFLOXACIN 0.5% 2.5 ML OPHT DROPS RTEYE SCH ×12 (01:27→22:31)
[2017-09-17 06:07] LABS: PLATELET COUNT 119 10^3/uL (150-400)
[2017-09-17] MEDS: HEPARIN 5,000 UNIT/0.5 ML SYR SC SCH ×3 (06:22→22:30)
[2017-09-17] MEDS: prednisoLONE ACET 1% 5 ML OPHT.BTL RTEYE SCH ×4 (07:06→20:29)
[2017-09-17] MEDS: MAGNESIUM OXIDE 400 MG TAB PO SCH (08:57)
[2017-09-17] MEDS: oxyCODONE IR 5 MG TAB PO PRN ×2 (08:58→22:31)
[2017-09-17] MEDS: BROMFENAC SODIUM RTEYE SCH (09:01)
[2017-09-17] MEDS: LISINOPRIL 10 MG TAB PO SCH (09:02)
[2017-09-17] MEDS: ERTAPENEM 1 GM VIAL IVP SCH (10:07)
--- NOTE | 2017-09-17 12:46 | GCON ---
[f rep st] CONSULTATION INFECTIOUS DISEASE CONSULTATION DATE OF CONSULTATION: 09/17/2017 REFERRING PHYSICIAN: Guicho Wilson Jr., MD REASON FOR CONSULTATION: To assist in management of this 77-year-old female who presented with SIRS, now with MRSA in her urine culture. HISTORY OF PRESENT ILLNESS: The patient is a 77-year-old female whose previous medical history is notable for the followin. Fibromyalgia. 2. Recurrent urinary tract infections: The patient states that her last urinary tract infection was approximately 3 months ago, treated by Dr. Rivera at [facility] with Macrobid and then ciprofloxacin. At that time, a urine culture grew Klebsiella pneumoniae that was found to be intermediate to Macrobid, hence, the change to ciprofloxacin. Other organisms include Citrobacter in the past, and Proteus and Enterococcus faecalis back in 2008. 3. History of irritable bowel. 4. Obesity. 5. History of hyperlipidemia. 6. Obstructive sleep apnea. 7. Diabetes. 8. Hypertension. 9. Asthma. PREVIOUS SURGICAL HISTORY: 1. Status post right cataract surgery last week. 2. History of bladder lift x2 in the 1960s. 3. Hysterectomy. 4. Tonsillectomy. Regarding her present issues, the patient states that she was in her usual state of health until this past . She states she underwent right cataract surgery without incident, and did not receive any antibiotics systemically, just some eye drops. She states on afternoon, after the surgery, she was talking with a friend on the phone and felt like she had to urinate. She urinated and told me that her urine smelled "really bad." She also noted some burning when she urinated, which was particularly painful, more than usual when she gets a urinary tract infection. She also states that she had been constipated and not had a bowel movement for approximately 2 days, so her granddaughter helped give her 1-1/2 enemas. She states that after the enemas she had a significant amount of hard/chunky stool, and then noted some brownish/orangish stool. She noted some left lower quadrant pain around that time as well. She denies any fevers or shaking chills, but on Monday she went to see her eye doctor and states that she felt very tired and overall unwell. She continued to have the left lower quadrant discomfort and significant burning with urination. She was initially sent to urgent care, but because she was not able to provide a urinary specimen she was sent to [facility] emergency department. In our emergency department, the patient was found to be hypotensive with a blood pressure of 90/58 and a heart rate of 115. She had a urinalysis that was difficult to interpret secondary to having taken Pyridium, but she had 15-25 white cells seen in the urine. She was also noted to have an elevated creatinine at 2.3, and a white blood cell count of 25. She had a CT of the abdomen and pelvis without contrast that showed diffuse mild colitis in the latter half of the transverse colon, splenic flexure , descending and upstream half of the sigmoid colon, with scattered diverticula. The rectosigmoid colon and upstream bowel were found to be normal. She was seen to have moderate constipation of the ascending colon as well. The lung bases were found to be clear. The heart size was normal with calcified coronary plaques. The abdominal aorta was normal caliber with moderate calcified plaque. In the emergency room, the patient was given ceftriaxone and ertapenem. Her procalcitonin was found to be above 9. She was admitted to [facility] and continued on ertapenem. Ampicillin was added when her urine culture showed gram -positive cocci. Last evening, the patient's urine microbiology identified greater than 100,000 colonies of MRSA. Vancomycin was added, and I am now asked to assist in her management. Ampicillin was discontinued. Speaking with the patient today, she states that she continues to have some abdominal tenderness, particularly in her left lower quadrant. It is not associated with nausea or vomiting, and she denies any "abdominal angina" after meals, per se. She has not had diarrhea, but continues to be constipated intermittently with her last bowel movement on when she received the enema from her granddaughter. She has a Madrigal catheter in place, so could not tell me about ongoing dysuria. She denies any back pain. She denies any fevers or shaking chills. No shortness of breath or cough. Aside from what is listed above, 10 systems are reviewed and all are negative. Patient states that she has had no genitourinary procedures or manipulations recently. Her last colonoscopy was 1 year ago and she tells me it was "perfect. " History of a colon polyp removed 5 years prior, and notably both parents of colon cancer in their 90s. She denies any unusual exposure history. No raw foods, unpasteurized milk. No recent travel within or outside the [place]. Last antibiotics were in July when she had a Klebsiella pneumoniae UTI. Her weight has been stable. She denies drenching night sweats, and her appetite prior to this illness on was fine. PREVIOUS MEDICAL HISTORY: As outlined above. ALLERGIES: Bactrim and erythromycin. MEDICATIONS: Presently include Invanz, vancomycin 1 g IV daily, lisinopril 20 mg daily, ertapenem 0.5 mg daily, amitriptyline 100 mg h.s. SOCIAL HISTORY: The patient is retired and lives with her granddaughter here in [place]. No history of tobacco, alcohol, or illicit substances. She enjoys embroidery and does not have any other unusual hobbies. She does not go to the [employer], no exposure to hot tubs. No history of MRSA. No skin and soft tissue boils or other. Her granddaughter does not have a history of MRSA that she knows of. She has no pets. PHYSICAL EXAMINATION: VITAL SIGNS: T-current is 36.4, T-max is 37.1, heart rate 94, blood pressure 105/54, 96% on 3 L. GENERAL: Obese female, appears older than stated age and more debilitated, lying in bed, nontoxic. HEENT: Atraumatic, normocephalic. Pupils equal, round, reactive to light. Extraocular movements are intact. No conjunctival injection, icterus, or petechiae. No sinus process tenderness or discharge from the nares. Mucous membranes are dry. The patient is edentulous. No oral lesions noted. Trachea is midline. No cervical or supraclavicular lymphadenopathy. NECK: Supple. CARDIOVASCULAR: S1, S2. Difficult to hear heart sounds. No rubs, gallops, or murmurs audible. LUNGS: Clear to auscultation bilaterally. No rales, rhonchi , or wheeze. No increased respiratory effort. ABDOMEN: Hypoactive bowel sounds. Diffusely tender, but mostly in the left lower quadrant. GENITOURINARY : Madrigal catheter is in place. EXTREMITIES: Evidence of osteoarthritis of her hands. Otherwise, no clubbing, cyanosis, or edema noted. No stigmata of endocarditis. SKIN: No evidence of skin or soft tissue infection. NEUROLOGIC : She is alert and oriented x3. No neurologic deficits noted. MICROBIOLOGIC DATA: Blood cultures x2 done on admission on the are no growth. Urine culture done is greater than 100,000 colonies of MRSA, with a vancomycin ARNEL of 1. The isolate is susceptible to tetracycline. LABORATORY DATA: White blood cell count of 10.3, down from 25 on admission, hematocrit 30, platelet count of 119, 60% neutrophils, 18% bands, down from 21% yesterday. BUN and creatinine 39/1.2. Creatinine improved from 2.3 on admission. AST of 23, ALT 26, alkaline phosphatase of 181. Procalcitonin was 9.7. Urinalysis as outlined in the HPI. Radiographic data as outlined in the HPI. Chest x-ray on September 15 shows no naveen fluid overload or opacity. IMPRESSION: 77-year-old female who presented with systemic inflammatory response syndrome physiology, CT evidence of transverse and descending colitis, as well as MRSA urinary tract infection. This is difficult to tie together into a unifying diagnosis. With methicillin-resistant Staphylococcus aureus bacteriuria and the absence of a previous Madrigal catheter or genitourinary manipulation, bacteremia and descending infection is of concern, but her blood cultures have been negative. Regarding her colitis, the patient has been constipated, without diarrhea per se, making Clostridium difficile or other causes of infectious colitis less likely. Given calcifications of the abdominal aorta and coronary arteries, ischemic colitis is of concern. PLAN: 1. Continue vancomycin given MRSA urinary tract infection (the patient clearly had antecedent symptoms with dysuria and urgency). Blood cultures are negative. 2. Contact isolation has been initiated for MRSA. 3. For her colitis, if she begins to have diarrhea would consider stool for C difficile/stool pathogen PCR as she is at risk for this in the setting of previous antibiotic use, but would also begin workup for possible ischemic colitis as well. Will discuss with the patient's hospitalist. 4. Would continue ertapenem for now pending maturation of cultures and concern for possible translocation of colonic bacteria, as patient's physiologic parameters seemed more consistent with gram-negative sepsis. 5. An echocardiogram has been done and was unremarkable for evidence of endocarditis. Thank you very much for consulting Infectious Disease. We will continue to follow this patient with you. /[id number]/MODL MTDD
[2017-09-17] MEDS: VANCOMYCIN HCL/NORMAL SALINE 250 ML IV SCH (15:40)
--- NOTE | 2017-09-17 17:02 | HOSPPROG ---
Hospitalist Progress Note Assessment/Plan: 77-year-old female admitted following cataract surgery with tachypnea leukocytosis tachycardia and hypotension. CT scan showed colitis through the entire colon and urinalysis and cultures confirmed an acute UTI and pyelonephritis with Staph aureus. Patient was started on Invanz which will be continued and vancomycin will be added. Today the patient is more alert reports she feels better but continues to have significant left CVA tenderness and left-sided abdominal pain. She is not having diarrhea. The findings as noted above been discussed with ID and it is unclear what is occurring. We have decided for the next 24 hr to continue the Invanz and vancomycin and follow the findings of colitis. GI will be consulted. -sepsis with hypotension leukocytosis and tachycardia secondary to acute urinary tract infection with Staph aureus, blood cultures are pending. She has undergone fluid resuscitation successfully and her IV fluids will be diminished. She is currently alert and taking some fluids. -acute pyelonephritis/UTI with Staph aureus. Patient be placed on vancomycin. -acute colitis noted on CT scan with abdominal pain consistent with this finding. The Invanz will be continued. GI pathogen panel is pending. White count has been declining since admission and the patient is afebrile. -acute respiratory failure secondary to sepsis. Patient has known EVA and uses nighttime oxygen but does not require oxygen during the day. Her hypoxia is currently improving although she continues to require O2. -electrolyte abnormalities some magnesium and calcium which will be repleted. -acute anemia with a hemoglobin of 10.0 falling from a hemoglobin of 14.0 on admission. This may be dilutional. There is no signs of GI bleeding to account for the blood loss. Will continue to follow. -acute kidney injury secondary to dehydration hypotension and sepsis as that is now improving with fluid hydration Plan: Continue gentle fluid hydration and Invanz, add vancomycin for Staph aureus UTI and follow the abdominal exam regarding the diarrhea and colitis. We are awaiting a GI panel. Case was discussed with Infectious Disease and the CT scan was reviewed by myself and with Radiology. Overall it is unclear as the source of the lady's infection and the etiology of the colitis. We are following this on a day-to- day basis. GI will be consulted regarding the colitis. Time 50 min Subjective: Reports she is feeling improved denies having chest pain or shortness of breath. She has had no diarrhea but continues to have left-sided abdominal pain. Objective: Vital Signs Temp Pulse Resp BP Pulse Ox 36.8 C 89 16 82/42 L 95 09/17/17 15:07 09/17/17 15:07 09/17/17 15:07 09/17/17 15:07 09/17/17 15:07 Laboratory Results 09/17/17 04:18 09/17/17 04:18 09/16/17 09/17/17 09/18/17 05:59 05:59 05:59 Intake Total 2100 2256 Output Total 1440 1400 Balance 660 856 PT 15.5 SEC (12.0-15.0) H 09/15/17 12:50 INR 1.21 (0.83-1.16) H 09/15/17 12:50 - Time Spent With Patient Time Spent with Patient: greater than 35 minutes Time Spent with Patient: Greater than 35 minutes spent on this patients care, greater than 50% of time spent counseling, educating, and coordinating care regarding the above mentioned plan. - Pending Discharge Pending Discharge Within 24 Hours: No Pending Discharge Within 48 Hours: No - Physical Exam Constitutional: other (Appears in mild discomfort.) Eyes: PERRL, icteric sclera Ears, Nose, Mouth, Throat: moist mucous membranes, hearing normal Cardiovascular: regular rate and rhythym, no murmur, rub, or gallop Respiratory: no respiratory distress, reduced air movement, rhonchi Gastrointestinal: normoactive bowel sounds, tenderness (Tenderness is noted along the left side of the abdomen and in the left CVA region. No clear rebound is noted nor isn't palpable mass. The abdomen is large and obese.) Genitourinary: no bladder fullness Skin: warm Musculoskeletal: generalized weakness Neurologic: AAOx3, CN II-XII Intact Psychiatric: interacting appropriately ICD10 Worksheet Patient Problems: Problems Problem Status Onset Abdominal pain Acute Colitis Acute Diarrhea Acute Pyelonephritis Acute Renal insufficiency Acute Urinary retention Acute Chronic Disease Mgmt/Transitional Care Acute Hypoxemia Acute Pneumonia Acute
[2017-09-17] MEDS ORDERED: PROTOCOL CALCIUM 1 DOSE IV PRN (17:04)
[2017-09-17] MEDS ORDERED: PROTOCOL MAGNESIUM 1 DOSE IV PRN (17:04)
[2017-09-17] MEDS ORDERED: NS 1,000 ML IV SCH (20:15)
[2017-09-17] MEDS: ASPIRIN 325 MG TAB PO SCH (20:28)
[2017-09-17] MEDS: CYCLOBENZAPRINE 10 MG TAB PO SCH (20:28)
[2017-09-17] MEDS: AMITRIPTYLINE HCL 100 MG TAB PO SCH (20:28)
[2017-09-17] MEDS: TEMAZEPAM 15 MG CAP PO SCH (20:28)
[2017-09-17] MEDS: ACETAMINOPHEN 325 MG TAB PO PRN (22:31)
[2017-09-18] MEDS: GATIFLOXACIN 0.5% 2.5 ML OPHT DROPS RTEYE SCH ×11 (00:35→20:52)
[2017-09-18 05:05] LABS: PLATELET COUNT 113 10^3/uL (150-400)
[2017-09-18] MEDS: prednisoLONE ACET 1% 5 ML OPHT.BTL RTEYE SCH ×4 (06:05→20:52)
[2017-09-18] MEDS: HEPARIN 5,000 UNIT/0.5 ML SYR SC SCH ×3 (06:05→20:58)
[2017-09-18] MEDS ORDERED: MAGNESIUM SULF 2 GM/WATER 50 ML IV ONE (07:30)
[2017-09-18] MEDS: ERTAPENEM 1 GM VIAL IVP SCH (09:04)
[2017-09-18] MEDS: LISINOPRIL 10 MG TAB PO SCH (09:04)
[2017-09-18] MEDS: MAGNESIUM OXIDE 400 MG TAB PO SCH (09:05)
[2017-09-18] MEDS: BROMFENAC SODIUM RTEYE SCH (09:06)
--- NOTE | 2017-09-18 11:11 | ASMTCMCOM ---
CM Note CM Note Notes: Met with patient and granddaughter. They currently deny [facility] services or placement of any kind. They state the therapist don't know how to work well with her. CM available should needs arise or the patient changes her mind. Plan home independent with granddaughters support. Date Signed: 09/18/2017 11:11 AM Electronically Signed By:Carolann Chatman RN
[2017-09-18] MEDS: ACETAMINOPHEN 325 MG TAB PO PRN (11:48)
--- NOTE | 2017-09-18 14:07 | GCON ---
[f rep st] CONSULTATION DATE OF CONSULTATION: 09/18/2017 REFERRING PHYSICIAN: Guicho Wilson Jr., MD CHIEF COMPLAINT: Abdominal pain. HPI: I am asked to see the patient in consultation by Dr. Wilson for chief complaint of abdominal p ain. Patient is a 77-year-old followed by Dr. Chris Calle, had a colonoscopy about 1 year ago, who galvan d acute onset of left lower quadrant abdominal pain prompting evaluation in the emergency room. She states she has never had pain like this before, but it was associated with significant dysuria, and s he does have history of UTIs. Patient notes that she had cardiac surgery this week, developed some c onstipation, took an enema, which resulted in diarrhea, and then noted abdominal pain. She states sh e did have some brown stool with potentially blood, but there was also blood with her urine, so it wa s difficult to tell if she had blood in her stools. There was no melena. No nausea or vomiting. Sh [place] states that the pain is significantly better since yesterday. There has been no air in her urine. No history of similar pain. She does have diverticulosis but without episodes of diverticulitis in the past. Evaluation did show UTI with Staph aureus. CT scan of the abdomen showed mild diffuse col itis, somewhat segmental, involving from the descending left side of the colon. There is diverticulo sis identified, possible diverticulitis. ALLERGIES: Sulfa, Bactrim, and erythromycin. HOME MEDICATIONS: Include Tylenol with codeine, albuterol, amitriptyline, aspirin, inhalers, Flexeri l, Zestril, Mirapex, Pravachol, Restoril, metformin, Lasix, magnesium, multivitamins, and prednisone drops. PAST MEDICAL HISTORY: Notable for recurrent UTIs, hyperlipidemia, osteoarthritis, insomnia, fibromya lgia, diabetes, hypertension, and asthma. PAST SURGICAL HISTORY: She is status post hysterectomy. She has had prior bladder surgery. SOCIAL HISTORY: The patient is retired, lives in [place]. FAMILY HISTORY: Notable for colon cancer, she states, in both parents who in their 90s. REVIEW OF SYSTEMS: I performed a complete review of systems, which was negative, except for the pert inent positives and negatives noted above in the HPI. PHYSICAL EXAM: VITAL SIGNS: She is currently afebrile at 36.4, BP 101/59, pulse 82. CONSTITUTIONAL : She is alert, in no apparent distress. EYES: Without scleral icterus. HEENT: No oral lesions. CARDIOVASCULAR: Regular rate and rhythm. CHEST: Clear to auscultation. ABDOMEN: Obese, soft. S ome tenderness to palpation in the left lower quadrant but no rebound. NEUROLOGIC: Nonfocal. SKIN: No rashes. LABORATORY DATA: White count significantly improved today, normal at 8, hemoglobin 10.2 with hematoc rit 29.6, platelets 113. BUN and creatinine [address] scan of the abdomen done 09/15/2017 show s decompressed urinary bladder with Madrigal catheter. No hydronephrosis. Diffuse mild colitis involvi ng the left hemicolon. No perforation, abscess, or obstruction. There is diverticulosis noted. Rad iologist makes note of possible diverticulitis versus C difficile. ASSESSMENT: Patient with abdominal pain. May be multifactorial if she does have a UTI. Also, possi ble colitis seen on CT scan. Overall, she is significantly better over the last 24 hours and respond ing to conservative measures. Differential diagnosis would include possible ischemic colitis, given its segmental nature, versus infectious cause. Also, consider diverticulitis. I doubt a colonic ves icular fistula. I doubt chronic colitis, especially as patient is improving. Overall, would be high risk for colonoscopy, especially in light of the fact she may have diverticulitis and also given her medical problems. As she is improving, I would delay endoscopic evaluation unless she does not cont inue to improve. PLAN: 1. Would recommend check infectious cause for her colitis. Patient has not had stool studies obtain ed yet, so will place order for GI path panel. 2. Continue conservative treatment, as she is improving, and will follow with you. Thank you for this consult. Sincerely, /[id number]/MODL
[2017-09-18] MEDS: VANCOMYCIN HCL/NORMAL SALINE 250 ML IV SCH (16:16)
--- NOTE | 2017-09-18 16:49 | HOSPPROG ---
Hospitalist Progress Note Assessment/Plan: * Colitis with sepsis - ischemic vs. infectious vs. diverticulitis -IV invanz -GI PCR panel pending * UTI/pyelonephritis - MRSA -IV Vanco * EVA - nocturnal O2 * Urinary retention - suspect worsened by UTI -voiding trial in 24-48 hours * s/p cataract surgery -continue eye gtt * ARF due to sepsis - improved Subjective: Much better today Objective: Vital Signs Temp Pulse Resp BP Pulse Ox 36.8 C 93 14 116/60 92 09/18/17 15:25 09/18/17 15:25 09/18/17 15:25 09/18/17 15:25 09/18/17 15:25 Laboratory Results 09/18/17 03:36 09/18/17 03:36 09/17/17 09/18/17 09/19/17 05:59 05:59 05:59 Intake Total 2256 900 Output Total 1400 1300 Balance 856 -400 PT 15.5 SEC (12.0-15.0) H 09/15/17 12:50 INR 1.21 (0.83-1.16) H 09/15/17 12:50 CXR viewed, my personal interpretation is - negative CT abd - normal kidneys, mild colitis - Physical Exam Constitutional: no apparent distress, appears nourished, not in pain Cardiovascular: regular rate and rhythym, no murmur, rub, or gallop Respiratory: no respiratory distress, no rales or rhonchi, clear to auscultation Gastrointestinal: normoactive bowel sounds, soft, non-tender abdomen, no palpable masses Skin: no rashes or abrasions, no fluctuance, no induration Neurologic: AAOx3, sensation intact bilaterally Psychiatric: interacting appropriately, not anxious, not encephalopathic, thought process linear ICD10 Worksheet Patient Problems: Problems Problem Status Onset Abdominal pain Acute Colitis Acute Diarrhea Acute Pyelonephritis Acute Renal insufficiency Acute Urinary retention Acute Chronic Disease Mgmt/Transitional Care Acute Hypoxemia Acute Pneumonia Acute
--- NOTE | 2017-09-18 18:28 | PCMIDPN ---
Assessment/Plan: Assessment: Sepsis of unclear etiology. Patient does have a good clinical story for urinary tract infection symptoms with dysuria. Her urinary culture is growing significant amounts of MRSA. This may be the cause. At the same time she had a significant amount of constipation requiring enemas. This also may be secondary to some gram-negative translocation from the GI tract. Nevertheless the patient is significantly clinically improved on an empiric course of both vancomycin ertapenem. Blood cultures remain negative. Plan: 1. Continue both vancomycin ertapenem. 2. Follow clinical course. If she remains stable may consider discharge in the next 1-2 days. 09/18/17 18:25 09/18/17 18:26 09/18/17 18:27 Subjective: Patient is sitting up in her hospital chair. Her granddaughter is in the room with her. She states she feels much better. Had another bowel movement overnight which was somewhat liquid. Continued mild abdominal pain. No more dysuria. No fevers or chills. Objective: Vancomycin # 3 Ertapenem # 4 Vital Signs Temp Pulse Resp BP Pulse Ox 36.8 C 93 14 116/60 92 09/18/17 15:25 09/18/17 15:25 09/18/17 15:25 09/18/17 15:25 09/18/17 15:25 Microbiology 09/18/17 15:13 Gastrointestinal Tract Panel (PCR) - Final Stool No Organism Detected Laboratory Results 09/18/17 03:36 09/18/17 03:36 09/17/17 09/18/17 09/19/17 05:59 05:59 05:59 Intake Total 2256 900 Output Total 1400 1300 Balance 856 -400 - Physical Exam General Appearance: WD/WN, alert, no apparent distress, non-toxic Respiratory: lungs clear, normal breath sounds, No respiratory distress Cardiac/Chest: regular rate, rhythm, No tachycardia Abdomen: soft, No non-tender, No rebound, No mass Skin: normal color, warm/dry, No rash Neuro/Psych: alert, normal mood/affect, oriented x 3 ICD10 Worksheet Patient Problems: Problems Problem Status Onset Abdominal pain Acute Colitis Acute Diarrhea Acute Pyelonephritis Acute Renal insufficiency Acute Urinary retention Acute Chronic Disease Mgmt/Transitional Care Acute Hypoxemia Acute Pneumonia Acute
[2017-09-18] MEDS: TAMSULOSIN HCL 0.4 MG CAP PO SCH (18:36)
[2017-09-18] MEDS: PRAMIPEXOLE 0.25 MG TAB PO SCH (20:53)
[2017-09-18] MEDS: ASPIRIN 325 MG TAB PO SCH (20:53)
[2017-09-18] MEDS: AMITRIPTYLINE HCL 100 MG TAB PO SCH (20:53)
[2017-09-18] MEDS: TEMAZEPAM 15 MG CAP PO SCH (20:53)
[2017-09-18] MEDS: CYCLOBENZAPRINE 10 MG TAB PO SCH (20:53)
[2017-09-18] MEDS: PRAVASTATIN SODIUM 40 MG TAB PO SCH (20:54)
[2017-09-19] MEDS: GATIFLOXACIN 0.5% 2.5 ML OPHT DROPS RTEYE SCH ×8 (00:36→20:25)
[2017-09-19 04:50] LABS: PLATELET COUNT 130 10^3/uL (150-400)
[2017-09-19] MEDS ORDERED: MAGNESIUM SULF 2 GM/WATER 50 ML IV ONE (08:37)
[2017-09-19] MEDS: TAMSULOSIN HCL 0.4 MG CAP PO SCH (09:21)
[2017-09-19] MEDS: oxyCODONE IR 5 MG TAB PO PRN ×2 (09:21→16:01)
[2017-09-19] MEDS: MAGNESIUM OXIDE 400 MG TAB PO SCH (09:21)
[2017-09-19] MEDS: ENOXAPARIN 40 MG/0.4 ML SYR SC SCH (09:22)
[2017-09-19] MEDS: ERTAPENEM 1 GM VIAL IVP SCH ×2 (09:22→12:17)
[2017-09-19] MEDS: LISINOPRIL 10 MG TAB PO SCH (09:23)
[2017-09-19] MEDS: MAGNESIUM SULF 1 GM/DEXTROSE 100 ML IV ONE ×2 (09:29→12:05)
[2017-09-19] MEDS: prednisoLONE ACET 1% 5 ML OPHT.BTL RTEYE SCH ×4 (09:29→20:25)
[2017-09-19] MEDS: BROMFENAC SODIUM RTEYE SCH (09:29)
[2017-09-19] MEDS: HEPARIN 5,000 UNIT/0.5 ML SYR SC SCH (09:30)
--- NOTE | 2017-09-19 12:05 | SOAPPROG ---
SOAP Progress Note Assessment/Plan: Assessment: A Abd pain no much better responding to antibiotics. GI Path panel negative. Unclear if colitis but suspect is self limited and no need for urgent colonoscopy as symptoms are resolving. Plan: No new GI rec Will sign off for now recommend GI follow with primary GI doctor Dr. Calle as outpatient. 09/19/17 12:02 Subjective: CC abd pain Pain much improved Objective: Vital Signs Temp Pulse Resp BP Pulse Ox 36.6 C 87 16 119/73 92 09/19/17 07:43 09/19/17 07:43 09/19/17 07:43 09/19/17 07:43 09/19/17 08:45 Microbiology 09/18/17 15:13 Gastrointestinal Tract Panel (PCR) - Final Stool No Organism Detected Laboratory Results 09/19/17 04:28 09/19/17 04:28 09/18/17 09/19/17 09/20/17 05:59 05:59 05:59 Intake Total 900 690 Output Total 1300 1775 550 Balance -400 -1085 -550 PT 15.5 SEC (12.0-15.0) H 09/15/17 12:50 INR 1.21 (0.83-1.16) H 09/15/17 12:50 Physical Exam - Physical Exam General Appearance: no apparent distress Respiratory: lungs clear Cardiac/Chest: regular rate, rhythm Abdomen: non-tender, soft ICD10 Worksheet Patient Problems: Problems Problem Status Onset Abdominal pain Acute Colitis Acute Diarrhea Acute Pyelonephritis Acute Renal insufficiency Acute Urinary retention Acute Chronic Disease [facility]/Transitional Care Acute Hypoxemia Acute Pneumonia Acute
[2017-09-19] MEDS: metroNIDAZOLE 500 MG TAB PO SCH ×2 (12:47→20:24)
--- NOTE | 2017-09-19 15:23 | HOSPPROG ---
Hospitalist Progress Note Assessment/Plan: * Colitis with sepsis - ischemic vs. infectious vs. diverticulitis -Levaquin/Flagyl -GI PCR panel negative * UTI/pyelonephritis - MRSA -IV Vanco - change to PO per ID * EVA - nocturnal O2 * Urinary retention - suspect worsened by UTI -DC liriano - voiding trial * s/p cataract surgery -continue eye gtt * ARF due to sepsis - improved Subjective: Much better Objective: Vital Signs Temp Pulse Resp BP Pulse Ox 36.6 C 78 16 120/78 90 L 09/19/17 12:00 09/19/17 12:00 09/19/17 12:00 09/19/17 12:00 09/19/17 12:00 Microbiology 09/18/17 15:13 Gastrointestinal Tract Panel (PCR) - Final Stool No Organism Detected Laboratory Results 09/19/17 04:28 09/19/17 04:28 09/18/17 09/19/17 09/20/17 05:59 05:59 05:59 Intake Total 900 690 Output Total 1300 1775 650 Balance -400 -1085 -650 PT 15.5 SEC (12.0-15.0) H 09/15/17 12:50 INR 1.21 (0.83-1.16) H 09/15/17 12:50 - Physical Exam Constitutional: no apparent distress, appears nourished, not in pain Cardiovascular: regular rate and rhythym, no murmur, rub, or gallop Respiratory: no respiratory distress, no rales or rhonchi, clear to auscultation Gastrointestinal: normoactive bowel sounds, soft, non-tender abdomen, no palpable masses Skin: no rashes or abrasions, no fluctuance, no induration Neurologic: AAOx3, sensation intact bilaterally Psychiatric: interacting appropriately, not anxious, not encephalopathic, thought process linear ICD10 Worksheet Patient Problems: Problems Problem Status Onset Abdominal pain Acute Colitis Acute Diarrhea Acute Pyelonephritis Acute Renal insufficiency Acute Urinary retention Acute Chronic Disease Mgmt/Transitional Care Acute Hypoxemia Acute Pneumonia Acute
--- NOTE | 2017-09-19 15:44 | PCMIDPN ---
Assessment/Plan: Assessment/Plan: 1. Sepsis: - source unclear ; related to colitis vs uti - blood cx ngtd - urine cx with mrsa, along with pyuria and sx of dysuria. - abd ct noted with diffuse left colon colitis. stool gi panel negative. -still with some residual abd pain , better overall - on vanco plus invanz -lost another PIV. - will change to levaquin plus flagyl to complete 10 days for colitis. - car coordinated with Rn, patient and patient's daughter. - 2. MRSA UTI: -on vanco wbc started to come down prior to vanco being started. CT abd without nephrolithiasis, perinephric stranding, etc.. -s/p three days of vanco. will observe closely without additional coverage for now. Meds vanco 09/16-09/18 invanz 09/15-09/19 Subjective: afebrile. feels a lot better. states she doesn't want to go to snf. another iv has blown out. difficult iv access. denies sob. having mild residual abdominal pain only with palpatoin otherwise she feels much better. having some mild loose stools. has liriano in place. Objective: Vital Signs Temp Pulse Resp BP Pulse Ox 36.6 C 78 16 120/78 90 L 09/19/17 12:00 09/19/17 12:00 09/19/17 12:00 09/19/17 12:00 09/19/17 12:00 Microbiology 09/18/17 15:13 Gastrointestinal Tract Panel (PCR) - Final Stool No Organism Detected Laboratory Results 09/19/17 04:28 09/19/17 04:28 09/18/17 09/19/17 09/20/17 05:59 05:59 05:59 Intake Total 900 690 Output Total 1300 1775 650 Balance -400 -1085 -650 - Physical Exam General Appearance: alert, no apparent distress Respiratory: lungs clear Cardiac/Chest: regular rate, rhythm Extremities: No swelling Abdomen: normal bowel sounds, soft, other (mildy tender in left epigastric and LUQ. mild guarding. no rebound) Pelvic Exam: liriano Skin: No erythema ICD10 Worksheet Patient Problems: Problems Problem Status Onset Abdominal pain Acute Colitis Acute Diarrhea Acute Pyelonephritis Acute Renal insufficiency Acute Urinary retention Acute Chronic Disease Mgmt/Transitional Care Acute Hypoxemia Acute Pneumonia Acute
[2017-09-19] MEDS ORDERED: VANCOMYCIN 1 GM in NS 250 ML IV SCH (16:00)
[2017-09-19] MEDS: TEMAZEPAM 15 MG CAP PO SCH (20:24)
[2017-09-19] MEDS: PRAMIPEXOLE 0.25 MG TAB PO SCH (20:24)
[2017-09-19] MEDS: PRAVASTATIN SODIUM 40 MG TAB PO SCH (20:24)
[2017-09-19] MEDS: CYCLOBENZAPRINE 10 MG TAB PO SCH (20:25)
[2017-09-19] MEDS: ASPIRIN 325 MG TAB PO SCH (20:25)
[2017-09-19] MEDS: AMITRIPTYLINE HCL 100 MG TAB PO SCH (20:25)
[2017-09-20] MEDS: oxyCODONE IR 5 MG TAB PO PRN ×2 (00:22→10:13)
[2017-09-20 03:02] VITALS: RESP 18
[2017-09-20 04:44] LABS: PLATELET COUNT 135 10^3/uL (150-400)
[2017-09-20] MEDS: metroNIDAZOLE 500 MG TAB PO SCH (06:40)
[2017-09-20] MEDS: prednisoLONE ACET 1% 5 ML OPHT.BTL RTEYE SCH ×2 (06:41→11:37)
[2017-09-20] MEDS ORDERED: MAGNESIUM SULF 2 GM/WATER 50 ML IV ONE (07:40)
[2017-09-20 08:37] VITALS: PULSE 90; TEMP 97.9; O2SAT 92
[2017-09-20] MEDS: MAGNESIUM OXIDE 400 MG TAB PO SCH (09:37)
[2017-09-20] MEDS: ENOXAPARIN 40 MG/0.4 ML SYR SC SCH (09:37)
[2017-09-20] MEDS: TAMSULOSIN HCL 0.4 MG CAP PO SCH (09:40)
[2017-09-20] MEDS: LISINOPRIL 10 MG TAB PO SCH (09:46)
[2017-09-20 09:47] VITALS: BP 108/65
[2017-09-20] MEDS: BROMFENAC SODIUM RTEYE SCH (09:48)
[2017-09-20] MEDS: GATIFLOXACIN 0.5% 2.5 ML OPHT DROPS RTEYE SCH (09:48)
[2017-09-20] MEDS: ACETAMINOPHEN 325 MG TAB PO PRN (10:13)
[2017-09-20] MEDS ORDERED: MAGNESIUM OXIDE 400 MG TAB PO ONE (10:45)
--- NOTE | 2017-09-20 11:09 | PDIAF ---
- Diagnosis Diagnosis: colitis, UTI Code Status: Full Code - Medication Management Discharge Medications: Medications to Continue on Transfer Acetaminophen/Codeine 300/30Mg [Tylenol #3 (*)] 1 each PO Q6 PRN 01/06/17 [Last Taken 09/14/17] Albuterol [Proventil Inhaler HFA (*)] 1 puffs IH Q4-6PRN PRN 01/06/17 [Last Taken 01/06/17] Amitriptyline HCl [Elavil 50 mg (*)] 100 mg PO HS 01/06/17 [Last Taken 09/13/17] Aspirin [Aspirin 325 mg (*)] 325 mg PO HS 01/06/17 [Last Taken 09/13/17] Beclomethasone Qvar 40 [Qvar 40 (*)] 2 puffs IH BID PRN 01/06/17 [Last Taken 01/18 09:00] Cyclobenzaprine [Flexeril 10 MG (*)] 10 mg PO HS 01/06/17 [Last Taken 09/13/17] Docusate Sodium [Colace 100 MG (*)] 100 mg PO HS PRN 01/06/17 [Last Taken ] Lisinopril [Zestril 10 mg (*)] 20 mg PO DAILY 01/06/17 [Last Taken 09/13/17] Pramipexole Di-HCl [Mirapex 0.25 mg (*)] 0.25 mg PO HS 01/06/17 [Last Taken 06/21] Pravastatin Sodium [Pravachol] 40 mg PO HS 01/06/17 [Last Taken 09/13/17] Temazepam [Restoril] 30 mg PO HS 01/06/17 [Last Taken 09/14/17] metFORMIN HCL [Metformin HCl] 500 mg PO BIDMEAL 01/06/17 [Last Taken 09/13/17] Bromfenac Sodium [Bromsite] 1 drop RTEYE DAILY 09/15/17 [Last Taken Unknown] Furosemide [Lasix 20 MG (*)] 20 mg PO DAILY PRN 09/15/17 [Last Taken Unknown] Gatifloxacin 0.5% [Zymaxid 0.5%] 1 drop RTEYE TID 09/15/17 [Last Taken Unknown] Magnesium Oxide [Magnesium Oxide 500 mg] 500 mg PO DAILY 09/15/17 [Last Taken Unknown] [place]-3 Fatty Acids [Fish Oil 1000 mg (*)] 2,000 mg PO BID 09/15/17 [Last Taken 09/13/17] Potassium Cl [Klor-Con 10 meq (RX)] 10 meq PO DAILY PRN 09/15/17 [Last Taken Unknown] prednisoLONE ACET 1% [Pred Forte 1% (*)] 1 drops RTEYE QID 09/15/17 [Last Taken Unknown] Tamsulosin HCl [Flomax 0.4 MG (*)] 0.4 mg PO DAILY #30 cap 09/20/17 [Last Taken Unknown] levOFLOXACIN [levAQUIN (*)] 750 mg PO DAILY AT 10AM #5 tab 09/20/17 [Last Taken Unknown] metroNIDAZOLE [Flagyl 500 mg (*)] 500 mg PO Q8HRS #15 tab 09/20/17 [Last Taken Unknown] Discharge Medications: Refer to the Discharge Home Medication list for PRN reason. - Orders Services needed: Home Care, Registered Nurse, Physical Therapy, Occupational Therapy Home Care Face to Face: I certify that this patient was under my care and that I had the required [id number] encounter meeting the encounter requirements on the discharge day. My findings support the fact that the patient is homebound as defined in Home Care Face to Face Continued: CMS Chapter 7 Medicare Benefits Manual 30.1.1 , The condition of the patient is such that there exists a normal inability to leave home and consequently, leaving home would require a considerable and taxing effort. Isolation Type: Contact Isolation Diet Recommendation: no restrictions on diet - Follow Up Care Current Providers and Referrals: Bryanna Cintron MD [Primary Care Provider] - As per Instructions
--- NOTE | 2017-09-20 11:59 | ASMTCMCOM ---
CM Note CM Note Notes: [facility]. Both are still refusing homecare, anticipate pt will dc home w/support from [facility]. CM available for any changes. DC Plan: Home independent Date Signed: 09/20/2017 11:58 AM Electronically Signed By:Alina Gaytan RN
--- NOTE | 2017-09-20 23:19 | GDS ---
[f rep st] DISCHARGE SUMMARY DIAGNOSES: 1. Colitis with sepsis. 2. Methicillin-resistant Staphylococcus aureus urinary tract infection. 3. Obstructive sleep apnea, on nocturnal oxygen. 4. Urinary retention. 5. Recent cataract surgery. 6. Acute renal failure due to sepsis. HISTORY: The patient is a 77-year-old female, who recently underwent cataract surgery and shortly th ereafter developed fever and sepsis, with the source being either colitis versus a urinary tract infe ction. Differential diagnosis for her colitis included ischemic versus infectious versus diverticuli tis. She was seen in consultation with both Gastroenterology and Infectious Disease. She improved o n IV Invanz and is now switched to oral Levaquin and Flagyl. Her GI PCR panel was negative. She also had dysuria and symptoms of urinary tract infection. Urine culture grew MRSA. She received 3 full days of IV vancomycin, which Infectious Disease feels is likely adequate. She did have some urinary retention, likely worsened by her urinary tract infection, and she required a Madrigal catheter that was successfully discontinued 24 hours prior to discharge and she is now voiding without any dif ficulty. She was initiated on Flomax to help with urine flow and is taking a prescription home if it continues to be an issue. DISCHARGE MEDICATIONS: Please see computerized record for full detailed list. New medications: 1. Levaquin 750 mg p.o. daily for 5 more days. 2. Flagyl 500 mg p.o. every 8 hours for 5 more days. 3. Flomax 0.4 mg p.o. daily. ADDITIONAL DISCHARGE INSTRUCTIONS: 1. Follow up with primary care in 1-2 days. 2. Home health PT/OT recommended, but declined by patient. Greater than 30 minutes' time was spent arranging this discharge. Patient was seen and examined by anastasia barahona on the day of discharge. /[id number]/MODL
--- NOTE | 2017-09-21 10:05 | ASDISCHSUM ---
Discharge Information Plan Status:Home with No Needs Medically Cleared to Leave: Discharge Date:09/20/2017 01:04 PM CM D/C Disposition:Home, Routine, Self-Care ADT D/C Disposition:Home Health Service Projected Discharge Date:09/20/2017 01:04 PM Transportation at D/C:Family Discharge Delay Reason: Follow-Up Date:09/20/2017 01:04 PM Discharge Slot: Final Diagnosis: Placement Information Patient Contact Information Contact Name:JAYDA Relationship:Abel Address:[address] City:[place] Alternate Phone: [facility]/Zip Code:[place] [address] Email: Financial Information Financial Class: Primary Plan Desc:MEDICARE INPATIENT Primary Plan Number:[id number] [facility] Secondary Plan Number:[id number] Assessment Information [facility] CM Progress Note CM Note CM Note Notes: Spoke w/pt and holly who lives with her and is a [employer] re; dc poc. PT recommends SNF but pt adamantly refuses, also refuses homecare, stating normally is independent at home and is only weak right now. CM advised pt and holly, should anything change we can set up SNF/HC DC Plan: Home independent w/support of holly Date Signed: 09/16/2017 03:24 PM Electronically Signed By:Alina Gaytan RN [facility] CM Progress Note CM Note CM Note Notes: Met with patient and granddaughter. They currently deny [place] services or placement of any kind. They state the therapist don't know how to work well with her. CM available should needs arise or the patient changes her mind. Plan home independent with [facility] support. Date Signed: 09/18/2017 11:11 AM Electronically Signed By:Carolann Chatman RN [facility] CM Progress Note CM Note CM Note Notes: Spoke w/pt and holly re; zay poc. Both are still refusing homecare, anticipate [facility] CM available for any changes. DC Plan: Home independent Date Signed: 09/20/2017 11:58 AM Electronically Signed By:Alina Gaytan RN Intervention Information
--- NOTE | 2017-09-25 11:39 | PQFORM ---
PHYSICIAN QUERY FORM Needs Your Response This query form is being sent to you to assure this patient record is coded properly. Please respond to the question below: OFFICE SERVICES ASSOCIATE QUESTION: Dr. Hernandez, In Dr. Hollingsworth's H&P, it is documented that the patient had acute on chronic respiratory failure. In Dr. Avila's progress notes, he documents acute respiratory failure due to sepsis. Can any the following be added as diagnoses to the discharge summary? ____x___ Acute on chronic respiratory failure Acute respiratory failure due to sepsis Nocturnal hypoxia only No evidence of acute respiratory failure Other Thank you for clarifying, Ericka Nicolas, GARY HIM Coding INSTRUCTIONS FOR RESPONSE: Answer question by clicking on the "Edit Document" button. Move cursor to area below the stars. When complete, hit "Save." Click on the "Sign" button, then click "Sign" again. Type in your PIN and hit "Enter." MTDD
== END 2017-09-20 13:04 | disposition home health service (06) | DRG 871 ==
LOC: F3E 15:41
PROVIDERS: ADMIT Internal Medicine; ATTEND Internal Medicine
DX: A41.9 Sepsis, unspecified organism (principal); R65.21 Severe sepsis with septic shock; K52.9 Noninfective gastroenteritis and colitis, unspecified; N39.0 Urinary tract infection, site not specified; B95.62 Methicillin resistant Staphylococcus aureus infection as the cause of diseases classified elsewhere; J96.20 Acute and chronic respiratory failure, unspecified whether with hypoxia or hypercapnia; N17.9 Acute kidney failure, unspecified; G47.33 Obstructive sleep apnea (adult) (pediatric); R33.9 Retention of urine, unspecified; M79.7 Fibromyalgia; E66.9 Obesity, unspecified; E78.5 Hyperlipidemia, unspecified; E11.9 Type 2 diabetes mellitus without complications; I10 Essential (primary) hypertension; J45.909 Unspecified asthma, uncomplicated; I50.9 Heart failure, unspecified
CPT/HCPCS: 96365; 97116-GP; 97162-GP; 97165-GO; 97535-GO; G8978-GP-CK; G8979-GP-CI; G8980-GP-CI; G8987-GO-CJ; G8988-GO-CI; J0290; J0696; J1335; J1650; J3370; J3475

== ENCOUNTER → 2017-10-27 | Outpatient (CLI) | payer OTHER | LOC: BMCIMAGING 10:54 | PROVIDERS: ATTEND Internal Medicine | DX: R05 Cough (principal) ==

== ENCOUNTER → 2017-12-04 | Outpatient (CLI) | payer OTHER | LOC: BMCIMAGING 13:05 | PROVIDERS: ATTEND Internal Medicine | DX: Z12.31 Encounter for screening mammogram for malignant neoplasm of breast (principal) ==

== ENCOUNTER → 2017-12-20 | Outpatient (CLI) | payer OTHER | LOC: FIMAGING 09:47 | PROVIDERS: ATTEND Internal Medicine | DX: R91.1 Solitary pulmonary nodule (principal) ==

== ENCOUNTER → 2018-07-11 | Outpatient (CLI) | payer OTHER | LOC: FIMAGING 09:15 | PROVIDERS: ATTEND Internal Medicine Critical Care Medicine | DX: R91.1 Solitary pulmonary nodule (principal) ==

== ENCOUNTER → 2018-11-23 | Outpatient (CLI) | payer OTHER | LOC: BMCIMAGING 12:25 | PROVIDERS: ATTEND Internal Medicine | DX: E04.2 Nontoxic multinodular goiter (principal) | CPT/HCPCS: 76536-PO ==

== ENCOUNTER → 2019-02-15 | Outpatient (CLI) | payer OTHER | LOC: BMCIMAGING 11:45 ==